=== PATIENT | female | born 1930 | race Caucasian/White ===

== ENCOUNTER 2017-11-06 15:57 | Emergency (ER) | payer MEDICARE, MEDICAID ==
--- NOTE | 2017-11-07 03:45 | SS ---
PRIMARY CARE PHYSICIAN: Adelaida Veras M.D. REASON FOR VISIT: Blood in stool. HISTORY OF PRESENT ILLNESS: This is an 86-year-old white female with a known history of COPD, hyperl ipidemia and hypertension, who reports over the last 2-3 years she has had intermittent blood in her bowel movements, which usually happens in the morning with morning bowel movement. It is painless. She notices it in the toilet. She reports that the last anywhere between 2 and 4 days, she is uncert ain, she has been having some blood in her bowel movements in the mornings and notices in the toilet after she gets up. Then this morning she had 2 bloody bowel movements in the toilet that had between a tablespoon and a cup size of blood in each one. They were some bright red, some clot to them, aga in painless. No mucus. She had had some diarrhea, though for the last 6 to 7 days, though only 2-3 times per day. She denied any other symptoms. Came into [facility], there she had a no rmal hemoglobin and hematocrit and negative orthostatics. She was transferred over here due to anne rn for possible diverticular bleed. Of note, she did have a colonoscopy 2 years ago, she is not exac tly certain, there was also a thought that she had not had another one in 5 years. The patient has s een Dr. Veras about the blood in her bowel movements as an outpatient and is now already set up for a colonoscopy as an outpatient later this month on the or . The patient has also noticed t evi a little bit of left lower quadrant abdominal pain, kind of a crampy in nature. PAST MEDICAL HISTORY: 1. Hypertension. 2. Hyperlipidemia. 3. Chronic obstructive pulmonary disease. PAST SURGICAL HISTORY: 1. Cholecystectomy. 2. Hysterectomy. 3. Bilateral knee surgeries. 4. Bilateral rotator cuff repair. SOCIAL HISTORY: The patient is a former smoker, quit more than 10 years ago. No alcohol or illicit drug use. FAMILY HISTORY: Negative per patient. ALLERGIES: REGLAN. CURRENT MEDICATIONS: 1. Atenolol 12.5 mg 3 times a day. 2. Lovastatin 20 mg daily. 3. Lisinopril/hydrochlorothiazide 20/12.5 mg daily. 4. Gabapentin 300 mg 4 times a day. 5. Aspirin 81 mg daily. 6. ProAir HFA as needed. 7. Fluticasone 2 sprays in each nostril daily. 8. Azelastine nasal spray as needed. 9. Tramadol 50 mg every 6 hours as needed for pain. 10. Vitamin C 500 mg daily. 11. Vitamin D3 of 1000 units daily. 12. Multivitamin daily. REVIEW OF SYSTEMS: Constitutional: No fevers, no chills. Eyes: No double vision or blurred vision . ENT: She has chronic nasal congestion and drainage. No sore throat. Pulmonary: No coughing, wh eezing or shortness of breath. Cardiovascular: No chest pain, no palpitations or racing heart. Gas trointestinal: See HPI. No nausea or vomiting. Genitourinary: No dysuria or hematuria. Musculosk eletal: No muscle aches or joint pains. Skin: No rashes or lesions she is noted. Neurologic: No numbness, tingling or focal weakness. She ambulates today without any dizziness. PHYSICAL EXAMINATION: VITAL SIGNS: Blood pressure 171/79, pulse 68, respirations 20, temperature 98.6, O2 sat 97% on room air. GENERAL: This is a well-developed, obese white female in no apparent distress. Mood and affect appr opriate. EYES: Pupils equal, round, and react to light. Extraocular movements intact. Oropharynx clear with out lesions, erythema or exudate. NECK: Supple. No lymphadenopathy, no thyroid nodules or enlargement. No JVD. HEART: Regular rate and rhythm. No murmurs, rubs or gallops. LUNGS: Clear to auscultation bilaterally. No wheezes, crackles or rhonchi. ABDOMEN: Soft, mild tenderness to palpation in the left lower quadrant without guarding. Minimal fu llness in that area. No rebound tenderness. No hepatosplenomegaly or other masses. EXTREMITIES: No clubbing, cyanosis or edema. SKIN: No rashes or lesions noted. NEUROLOGIC: The patient has intact strength in all extremities. Deep tendon reflexes are 2+ in all extremities and she has no facial droop. PSYCHIATRIC: Patient is alert and oriented x3 currently. She does have intermittent memory problems for the last 2-3 years per her and her family and for an example, this morning she could not remembe r what year it was, but she knows now. LABORATORY DATA: CBC shows a platelet count of 80,000, otherwise, completely normal. Hemoglobin was 13.0. This was checked at noon today. She has not had any bleeding or bowel movement since early t his morning. Coagulation profile normal. Complete metabolic panel was within normal limits. Urinal ysis showed some leukocyte esterase and white blood cells and 3+ bacteria. A Hemoccult of the stool was positive in [facility]. ASSESSMENT: 1. Lower gastrointestinal bleed. This is not a massive or continual bleed. It is most likely due t o diverticulitis though there is a possibility that it was a noninfected diverticular bleed; however, she has only had 2 moderate size amount of blood this morning and none since then. She has normal r ed blood cell count. She has normal vital signs and has had negative orthostatics. At this time, I think that her bleeding has stopped and was not clinically significant and so she is stable for disch [facility] from that standpoint. 2. Lower abdominal pain with bloody bowel movements, likely a mild case of diverticulitis. We will put patient on ciprofloxacin and metronidazole for the next 7 days and will have her follow up with Ancelmo Veras as an outpatient. 3. Pyuria and bacteriuria. The patient does not currently have any pain with urination; however, e ciprofloxacin should cover any possible infectious organisms in the urine. 4. Hypertension. The patient will need to continue in her home antihypertensives. 5. Thrombocytopenia. This needs to be followed and have further workup as an outpatient. DISCHARGE MANAGEMENT: The patient has been observed in both [facility] and in our [facility] ency room without any further evidence of bleeding. She is hemodynamically stable. She is being dis charged home. Follow up with Dr. Veras next week. Activity as tolerated. Diet healthy heart, low sodium diet. MEDICATIONS: Continue home medications plus. 1. Ciprofloxacin 500 mg twice a day for 7 days. 2. Metronidazole 500 mg 3 times a day for 7 days. The patient is also to follow up with her previously scheduled colonoscopy later this month. She can return to the emergency room. She has repeated significant episodes of bleeding from her bottom.
== END 2017-11-06 19:50 | disposition home or self-care (01) ==
LOC: ERS 15:57
DX: K92.2 Gastrointestinal hemorrhage, unspecified (principal); D69.6 Thrombocytopenia, unspecified; J44.9 Chronic obstructive pulmonary disease, unspecified; E78.5 Hyperlipidemia, unspecified; I10 Essential (primary) hypertension; Z87.891 Personal history of nicotine dependence
CPT/HCPCS: 99285

== ENCOUNTER 2017-12-02 08:50 | Day surgery (SDC) | payer MEDICARE, MEDICAID ==
[2017-12-02] MEDS ORDERED: PROPOFOL 200 MG/20 ML VIAL ONE (12:19)
--- NOTE | 2017-12-03 00:16 | OP ---
DATE OF SURGERY: 12/02/2017 OPERATIVE PROCEDURE: Colonoscopy. PREOPERATIVE DIAGNOSIS: An 87-year-old female with hematochezia, undergoing colonoscopy. POSTOPERATIVE DIAGNOSES: 1. Sigmoid diverticular disease and occasional diverticula over the proximal colon and occasional di verticula over the cecum. 2. Large hemorrhoids. PROCEDURE IN DETAIL: The patient was placed on her left lateral position under given sedation by the Anesthesia Department. A rectal exam was done before scope was advanced into the rectum. The patie nt had a small hemorrhoid also what appears to be skin tag. No other lesion felt on rectal exam. A Pentax video colonoscope was introduced into the rectum and advanced all the way into the cecum. The prep was good. The mucosa appeared normal. The patient had scattered sigmoid diverticular disease and also a few diverticula over the descending colon area. She also has occasional diverticula over cecal area and transverse colon area. The mucosa appears normal throughout the colon with normal vas cular pattern. Withdrawal of scope from the cecum, ascending colon, hepatic flexure, no other pathol ogy seen. Transverse colon, splenic flexure, descending colon, sigmoid colon and no other lesions ex cept for scattered diverticular disease. Retroflexion of scope in the rectum has large hemorrhoids. DISCHARGE PLANNING: This is an 87-year-old female referred to me by Dr. Adelaida mason of hematochezia. The patient underwent colonoscopy and was found to have hemorrhoids and scat tered diverticular disease. DISCHARGE RECOMMENDATIONS: 1. The patient advised to call me if she develops abdominal pain, hematochezia. 2. High-fiber diet. 3. Metamucil once a day. 4. To come back to clinic in 2 weeks.
== END 2017-12-02 17:00 | disposition home or self-care (01) ==
LOC: SDC 08:50
PROVIDERS: ATTEND Internal Medicine Gastroenterology
PROC: 0DJD8ZZ Inspection of Lower Intestinal Tract, Via Natural or Artificial Opening Endoscopic (ICD-10-PCS; principal; 2017-12-02)
DX: K92.1 Melena (principal); K57.30 Diverticulosis of large intestine without perforation or abscess without bleeding; K64.9 Unspecified hemorrhoids; Z88.8 Allergy status to other drugs, medicaments and biological substances
CPT/HCPCS: J2704

== ENCOUNTER 2018-07-10 10:33 | Day surgery (SDC) | payer MEDICARE, MEDICAID ==
[2018-07-09 13:07] VITALS: BMI 36.0
[2018-07-10] MEDS ORDERED: Oxymetazoline HCl 0.05% ( 15 ML ) ONE ×2 (11:07→11:25)
[2018-07-10] MEDS ORDERED: Fentanyl 100 MCG/2 ML VIAL ONE ×2 (11:20)
[2018-07-10] MEDS ORDERED: Lidocaine 1% w/Epinephrine 1:100K 30 ML VIAL ONE (11:25)
[2018-07-10 11:32] LABS: Hemoglobin 12.4 g/dL (12.0-16.0)
[2018-07-10 11:48] LABS: Anion Gap 14 mmol/L (10-20); BUN (Urea Nitrogen) 25 mg/dL (9.8-20.1); Calc. Creatinine Clearance 49 mL/min (70-130); Calcium 9.7 mg/dL (7.8-10.44); Carbon Dioxide 23 mmol/L (23-31); Chloride 108 mmol/L (98-107); Estimated GFR-MDRD 59; Glucose 80 mg/dL (83-110); Potassium 4.1 mmol/L (3.5-5.1); Sodium 141 mmol/L (136-145)
[2018-07-10] MEDS ORDERED: PROPOFOL 200 MG/20 ML VIAL ONE (13:38)
[2018-07-10] MEDS ORDERED: Lidocaine 1% PF 5 ML VIAL ONE (13:38)
[2018-07-10] MEDS ORDERED: ePHEDrine/0.9% NaCl/PF SYRINGE 50 mg/10 ml ONE (13:38)
--- NOTE | 2018-07-11 13:59 | OP ---
DATE OF PROCEDURE: 07/10/2018 PREOPERATIVE DIAGNOSES: Chronic maxillary sinusitis, chronic ethmoid sinusitis, chronic frontal sinusitis, and hypertrophic inferior turbinates. POSTOPERATIVE DIAGNOSES: Chronic maxillary sinusitis, chronic ethmoid sinusitis, chronic frontal sinusitis, and hypertrophic inferior turbinates. PROCEDURES PERFORMED: Bilateral nasal endoscopy with maxillary antrostomy with removal of tissue, bilateral nasal endoscopy with total ethmoidectomy, bilateral nasal endoscopy with frontal sinusotomy, bilateral nasal endoscopy with submucosal resection of inferior turbinates. DESCRIPTION OF PROCEDURE: MAXILLARY ANTROSTOMY The uncinate was then identified and the extent of the uncinate was appreciated by out-fracturing the uncinate with the ball-tip probe. We then used the sickle blade to disarticulate the uncinate from the lateral nasal wall. This was then removed with straight biting and upbiting punches with the remaining shrouds of mucosa and bony septum removed with the micro-debrider. The natural os of the maxillary sinus was then identified and enlarged with the maxillary punches and back biting forceps. TOTAL ETHMOIDECTOMY The anterior face of the ethmoid bulla was entered and with the micro-debrider, dissection continued posteriorly to the ground lamella. The limits of dissection included the insertion of the middle turbinate, medial orbital wall, and base of skull. We similarly identified the frontal recess and removed shrouds of bone and debris in that region to obtain patency into the agger nasi region and frontal recess. We then entered the ground lamella and its anteroinferior aspect and proceeded posteriorly, opening the posterior ethmoid air-cell system. Again, the limits of dissection included the base of skull and medial orbital wall. BILATERAL NASAL ENDOSCOPY WITH FRONTAL SINUSOTOMY With the 0-degree endoscope, the patient underwent systematic nasal endoscopy. There were no suspicious internasal masses or lesions identified. We then focused our attention to the osteomeatal complex region under the middle turbinate. BILATERAL NASAL ENDOSCOPY WITH SUBMUCOSAL RESECTION OF INFERIOR TURBINATES After consent was obtained, the patient was identified, brought to the operating room, and placed on the operating room table in the supine position. Consent was obtained, notifying the patient of the possibility of additional infections, bleeding, brain injury, and eye/orbital injury. The patient was placed on the operating room table, and general endotracheal anesthesia and intravenous access was obtained. The patient was then positioned, prepped and draped for endoscopic sinus surgery. Nasal preparation included trimming nasal vestibular hairs and spraying in topical Afrin. We then placed Afrin topical solution on nasal pledgets and strategically located them intranasally. The perinasal mucosa was injected with 1% lidocaine with 1:100,000 epinephrine in the submucoperichondrial plane of the septum, lateral nasal wall, and anterior to the uncinate. The patient was then prepped and draped in a sterile fashion and positioned for endoscopic sinus surgery. With the 0-degree endoscope, the patient underwent systematic nasal endoscopy. There were no suspicious internasal masses or lesions identified. We then focused our attention to the osteomeatal complex region under the middle turbinate. The inferior turbinates were visualized with a 0 degree endoscope and outfractured with a [place]ona elevator. The inferior medial aspect was cauterized with the electrocautery. Hemostasis was obtained . After adequate airway was established, we turned our attention to the contralateral side and used a similar procedure. Again, a Verona elevator was used to outfracture inferior turbinates under endoscopic visualization. With a suction cautery, the free inferior medial aspect was cauterized under direct visualization along the length of the inferior turbinate. At this point, we then turned our attention to the contralateral side and proceeded with endoscopic sinus surgery. At the completion of the case, Rice keel splints were placed in the ethmoid cavities after the ethmoidectomy. There were no complications. The patient tolerated the procedure well and was discharged to the recovery room in stable condition prior to return to the preoperative day stay with ultimate discharge home. Prescriptions for pain medication and antibiotics were provided. The patient received intramuscular Depo-Medrol during the case. Job ID: [id number]
== END 2018-07-10 14:45 | disposition home or self-care (01) ==
LOC: SDC 10:33
PROVIDERS: ATTEND Specialist
PROC: 09TL8ZZ Resection of Nasal Turbinate, Via Natural or Artificial Opening Endoscopic (ICD-10-PCS; principal; 2018-07-10)
PROC: 09TV8ZZ Resection of Left Ethmoid Sinus, Via Natural or Artificial Opening Endoscopic (ICD-10-PCS; 2018-07-10)
PROC: 09TU8ZZ Resection of Right Ethmoid Sinus, Via Natural or Artificial Opening Endoscopic (ICD-10-PCS; 2018-07-10)
PROC: 099T8ZZ Drainage of Left Frontal Sinus, Via Natural or Artificial Opening Endoscopic (ICD-10-PCS; 2018-07-10)
PROC: 099Q8ZZ Drainage of Right Maxillary Sinus, Via Natural or Artificial Opening Endoscopic (ICD-10-PCS; 2018-07-10)
PROC: 099R8ZZ Drainage of Left Maxillary Sinus, Via Natural or Artificial Opening Endoscopic (ICD-10-PCS; 2018-07-10)
PROC: 099S8ZZ Drainage of Right Frontal Sinus, Via Natural or Artificial Opening Endoscopic (ICD-10-PCS; 2018-07-10)
DX: J32.8 Other chronic sinusitis (principal); E78.5 Hyperlipidemia, unspecified; G25.81 Restless legs syndrome; J44.9 Chronic obstructive pulmonary disease, unspecified; K21.9 Gastro-esophageal reflux disease without esophagitis; I10 Essential (primary) hypertension; G47.30 Sleep apnea, unspecified; I08.1 Rheumatic disorders of both mitral and tricuspid valves; G62.9 Polyneuropathy, unspecified; I27.20 Pulmonary hypertension, unspecified; Z79.82 Long term (current) use of aspirin; Z79.899 Other long term (current) drug therapy; Z88.8 Allergy status to other drugs, medicaments and biological substances
CPT/HCPCS: 36415; 80048; 85014; 85018; 93005; 93010; J2001; J2704; J3010

== ENCOUNTER 2018-08-18 15:45 | Emergency (ER) | payer MEDICARE, MEDICAID ==
[2018-08-18 16:34] LABS: #Lymphocytes 1.3 thou/uL (1.20-3.40); #Monocytes 0.4 thou/uL (0.11-0.59); #Neutrophils 5.1 thou/uL (1.40-6.50); %Basophils 0.4 % (0.0-1.0); %Eosinophils 0.1 % (0.0-10.0); %Lymphocytes 19.3 % (21.0-51.0); %Neutrophils 74.2 % (42.0-75.0); Hemoglobin 11.5 g/dL (12.0-16.0); Mean Corpuscular Hemoglobin 28.4 pg (27.0-31.0); Mean Corpuscular Volume 88.8 fL (78.0-98.0); Mean Platelet Volume 7.4 fL (7.4-10.4); Platelet Count 313 thou/uL (130-400); RBC Distribution Width 13.5 % (11.5-14.5); Red Blood Cell (RBC) Count 4.05 mill/uL (4.20-5.40); White Blood Cell (WBC) Count 6.8 thou/uL (4.8-10.8)
[2018-08-18 16:54] LABS: ALT (SGPT) 14 U/L (8-55); AST (SGOT) 26 U/L (5-34); Albumin 4.1 g/dL (3.4-4.8); Alkaline Phosphatase 74 U/L (40-150); Anion Gap 15 mmol/L (10-20); BUN (Urea Nitrogen) 25 mg/dL (9.8-20.1); Bilirubin, Total 0.7 mg/dL (0.2-1.2); CK (CPK) 360 U/L (29-168); Calc. Creatinine Clearance 0 mL/min (70-130); Calcium 9.9 mg/dL (7.8-10.44); Carbon Dioxide 22 mmol/L (23-31); Chloride 106 mmol/L (98-107); Estimated GFR-MDRD 43; Globulin 2.4 g/dL (2.4-3.5); Glucose 130 mg/dL (83-110); Potassium 3.7 mmol/L (3.5-5.1); Protein, Total 6.5 g/dL (6.0-8.3); Sodium 139 mmol/L (136-145)
--- NOTE | 2018-08-18 17:03 | RAD ---
PORTABLE CHEST 1 VIEW: DATE: 08/18/2018. TIME: 3:56 p.m. HISTORY: Dyspnea, weakness. FINDINGS: Comparison is made with the exam of 08/30/2016. The heart size is normal. The aorta is tortuous. The lungs are expanded without focal areas of cons olidation, pneumothoraces, apollo pulmonary edema, or large effusions. POS: [facility]
[2018-08-18 17:42] LABS: Bilirubin Negative (Negative); Blood, Urine Negative (Negative); Clarity CLEAR (Clear); Glucose, Urine (Dipstick) Negative (Negative); Leukocyte Moderate (Negative); Nitrite Negative (Negative); Protein, Urine (Dipstick) Negative (Neg-Trace); Specific Gravity, Urine 1.017 (1.002-1.036); pH, Urine 6.5 (5.0-9.0)
[2018-08-18 17:44] LABS: Bacteria/HPF None Seen HPF (None Seen); Hyaline Casts/LPF 0-3 HYALINE CAST LPF (0-3 Hyaline); Pathc Cast-AUWi Flag 0.29 (0-2.49); Squamous Epithelial 0-3 HPF (0-3); WBC/HPF 21-50 HPF (0-3)
[2018-08-18] MEDS ORDERED: Amoxicillin/Potassium Clav 875 MG TAB ONE (18:04)
== END 2018-08-18 20:04 | disposition home or self-care (01) ==
LOC: ERS 15:45
DX: N39.0 Urinary tract infection, site not specified (principal); Z98.890 Other specified postprocedural states; E78.5 Hyperlipidemia, unspecified; J44.9 Chronic obstructive pulmonary disease, unspecified; I10 Essential (primary) hypertension; F03.90 Unspecified dementia, unspecified severity, without behavioral disturbance, psychotic disturbance, mood disturbance, and anxiety; Z87.891 Personal history of nicotine dependence; Z79.82 Long term (current) use of aspirin; Z79.899 Other long term (current) drug therapy
CPT/HCPCS: 36415; 71045; 80053; 81003; 81015; 82550; 84484; 85025; 93005; 99213; G0463

== ENCOUNTER 2019-02-10 19:30 | Outpatient (CLI) | payer MEDICARE, MEDICAID | END 2019-02-10 19:31 | disposition home or self-care (01) | LOC: SLEEPLAB 19:30 | PROVIDERS: ATTEND Family Medicine | DX: G47.33 Obstructive sleep apnea (adult) (pediatric) (principal); G25.81 Restless legs syndrome; R06.89 Other abnormalities of breathing; R09.89 Other specified symptoms and signs involving the circulatory and respiratory systems; R40.0 Somnolence; R53.83 Other fatigue; R35.1 Nocturia; R06.83 Snoring; E66.9 Obesity, unspecified; I10 Essential (primary) hypertension; Z68.26 Body mass index [BMI] 26.0-26.9, adult | CPT/HCPCS: 95811 ==

== ENCOUNTER 2019-06-03 17:19 | Observation (INO) | payer MEDICARE, OTHER ==
[2019-06-03 20:22] VITALS: BMI 36.5
[2019-06-03] MEDS ORDERED: Calcium Carbonate 500 MG ChewTAB PO PRN (21:01)
[2019-06-03] MEDS ORDERED: Acetaminophen 325 MG TAB PO PRN (21:01)
[2019-06-03] MEDS ORDERED: Enoxaparin Sodium 40 MG/0.4 ML SYRINGE SC SCH (21:15)
--- NOTE | 2019-06-03 21:53 | PDOC.FPRHP ---
- History of Present Illness Chief Complaint: SOB/cellulitis History of Present Illness: 88yo CF with h/o CHF, HLD, HTN, Dementia, and COPD presenting for worsening SOB and cellulitis of RLE. Pt states that approximately 1 month ago she had a mechanical fall while getting of the bed when she hit her left gipson. Went to her PCP and at that time wound was clean, non-draining and non-erythematous and thus was told to monitor and given return precautions. Since that time wound has started to drain purulent discharge, erythema to mid-gipson, mildly TTP and warm to the touch. Has not returned to PCP for eval. Presented to ED in [place]. Denies any fever/chills. Pt also endorses worsening dyspnea, has history of COPD and CHF. States dyspnea gradually worsened over past month, can talk to end of driveway and back with walker and mild dyspnea. ALso endorses increased sputum production and thickenness, white phelgm over past 1 week. Endorses chest congestion and nonproductive cough. No CP, fevers/chills, n/v, diarrhea/constipation, dysuria, frequency, or incontinence. She has never been on ventilator for COPD exacerbation. ED Course: Given duoneb in ED, ASA, and clinda. - Allergies/Adverse Reactions Allergies Allergy/AdvReac Type Severity Reaction Status Date / Time methylphenidate Allergy works in Verified 06/03/19 20:48 [From Ritalin] reverse for me - Home Medications Medication Instructions Recorded Confirmed Type Albuterol Sulfate [Proair HFA] 2 puff INH Q6HR PRN 12/02/17 06/03/19 History Atenolol [Tenormin] 1 tab PO QAM 12/02/17 06/03/19 History Gabapentin 600 mg PO TID 12/02/17 06/03/19 History Lovastatin [Mevacor] 1 tab PO HS 12/02/17 06/03/19 History Pramipexole Di-HCl [Pramipexole 0.5 mg PO QPM 12/02/17 06/03/19 History Dihydrochloride] Ascorbic Acid [Vitamin C] 500 mg PO DAILY 06/03/19 06/03/19 History Aspirin [Aspir-Low] 81 mg PO DAILY 06/03/19 06/03/19 History Cholecalciferol (Vitamin D3) 1,000 unit PO DAILY 06/03/19 06/03/19 History [Vitamin D3] Furosemide 20 mg PO DAILY 06/03/19 06/03/19 History Lisinopril 20 mg PO DAILY 06/03/19 06/03/19 History Multivit-Minerals/Folic/Ginkgo 1 tablet PO DAILY 06/03/19 06/03/19 History [One Daily For Women 50+ Adv] predniSONE 20 mg PO DAILY 06/03/19 06/03/19 History - History PMHx: CHF (no records of previous EF), HLD, HTN, Dementia, COPD, CKDIIIa, FELA PSHx: Zina, Hyst, BL knee replacements FHx: Unsure of family history Social: Lives in [place] with daughter Dayana and her . Denies any tob, etoh, or illicits. Remote history of smoking in her 20s but quit by age 31. - Review of Systems General: denies: fever/chills, weight/appetite/sleep changes, night sweats, fatigue Eyes: denies: vision changes ENT: denies: nasal congestion, rhinorrhea Respiratory: reports: cough, congestion, shortness of breath, exercise intolerance Cardiovascular: denies: chest pain, palpitation, edema, paroxysmal nocturnal dyspnea, orthopnea Gastrointestinal: denies: nausea, vomiting, diarrhea, constipation, abdominal pain Genitourinary: denies: incontinence, dysuria, polyuria, discharge Skin: reports: rashes (RLE cellulitis) Musculoskeletal: reports: stiffness (chronic of knees) Neurological: denies: numbness, syncope, seizure Psychological: denies: anxiety, depression - Vital signs BP: 128/59 HR: 78 RR: 18 Tmax: 97.9 Pox: 97% on RA Wt: 86kg - Physical Exam Constitutional: NAD, awake, alert and oriented, well developed (A/O x3 aware of situation and medical history, Resting comfortably. Very Pleasant.) HEENT: EOMI, conjunctiva clear, grossly normal vision, grossly normal hearing, normal nasal mucosa, MMM, oropharynx clear Neck: supple, trachea midline, no JVD Heart: RRR, normal S1/S2, no murmurs/rubs/gallops, pulses present, no edema ( mild edema of RLE cellultis, no edmea of RLE) Lungs: CTAB, no respiratory distress (no increased work of breathing), good air movement, no rales/rhonchi, no wheezing Abdomen: soft, non-tender, bowel sounds present Musculoskeletal: normal structure, normal tone Neurological: no focal deficit Skin: other (RLE cellulitis with erythema, warmth, and TTP to mid-gipson. 2cm wound with small purulent drainage and surround eschar.) Heme/Lymphatic: no unusual bruising or bleeding Psychiatric: normal mood and affect, good judgment and insight, intact recent and remote memory FMR H&P: Results - Labs Result Diagrams: 06/04/19 05:19 06/04/19 05:19 - EKG Interpretation EKG: NSR, normal R wave progression, normal axis, no acute T wave or ST changes. - Radiology Interpretation Chest x-ray Status: image reviewed by me (Small R midlung pneumonitis - rec 3-4 week repeat CXR Calcified trachea, cardiomegaly, mild blunting of costodiaphgramatic recesses, small consolidation in RUL), report reviewed by me FMR H&P: A/P - Problem List (1) COPD exacerbation Current Visit: Yes Status: Acute Code(s): J44.1 - CHRONIC OBSTRUCTIVE PULMONARY DISEASE W (ACUTE) EXACERBATION (2) Cellulitis of leg without foot, right Current Visit: Yes Status: Acute Code(s): L03.115 - CELLULITIS OF RIGHT LOWER LIMB (3) CHF (congestive heart failure) Current Visit: Yes Status: Chronic Code(s): I50.9 - HEART FAILURE, UNSPECIFIED (4) HLD (hyperlipidemia) Current Visit: Yes Status: Chronic Code(s): E78.5 - HYPERLIPIDEMIA, UNSPECIFIED (5) HTN (hypertension) Current Visit: Yes Status: Chronic Code(s): I10 - ESSENTIAL (PRIMARY) HYPERTENSION (6) FELA (obstructive sleep apnea) Current Visit: Yes Status: Chronic Code(s): G47.33 - OBSTRUCTIVE SLEEP APNEA (ADULT) (PEDIATRIC) - Plan 88yo CF with h/o CHF, HLD, HTN, Dementia, and COPD presenting for worsening SOB and cellulitis of RLE. #COPD exacerbation - Increased dyspnea, increased sputum production and change in consistence - CXR mild blunting of recesses, possible RUL consolidation - Satting upper 90s on RA, VSS, WBC 9.1 - Duonebs q6h prn - 40mg methylpred x5 days - Procal ordered - Mild COPD exacerbation, will start Doxy IV 100mg BID, will cont to assess and consider escalation of abx if warranted. - Monitor respiratory status #Cellulitis of RLE - No outpatient treatment, dose of clinda in ER - Marked borders of wound - Wound care consulted - Will start doxy to cover COPD exacerbation plus skin/soft tissue infection. Monitor closely and consider escalation of abx if no improvement in first 24 hours. - no systemic sxs with VSS #Elevated Troponins - No sxs, EKG WNL, monitor on tele - Trop 0.053 -> 0.023 - likely 2/2 to ALETHEA and COPD exacerbation - will cont to trend #Asymptomatic bacteriuria - no sxs. UA + Bacteria and large LE with no nitrites - will await Cx, monitor #CHF - No fluid overload on exam, lungs clear, no LE edema - No echo in records, will order for AM - BNP 138.3 which appears at baseline - will monitor fluid status - cont ASA 81mg and home lasix #HLD - on lovastatin, elevated cholesterol in past, last checked >1 year ago, will obtain FLP #HTN - BP stable, cont home meds, monitor #ALETHEA on CKDIIIa - BUN elevated at 26, Cr 1.21 - Baseline GF 58 with Cr 0.9 - Will give 1L LR @ 100cc/hr, reasses with AM labs #FELA - CPAP HS #Dementia - A/Ox3, understandings medical conditions and situation, able to make medical decision. Code: Full Diet: HH VTE: Lovenox IVF: LR @100cc/hr x1L PCP: Rito Disposition/LOS: Admit to Tele obs for COPD exacerbation, ALETHEA, and RLE cellulitis. Cont Abx, echo in AM, monitor respiratory status. Anticipate hospitalization <48 hours. FMR H&P: Upper Level - Pertinent history I was present with the logistics intern during the HPI. I agree with the above document. I made edits as needed. - Pertinent findings Pt resting comfortably in bed eating a cool cup of chocolate ice cream. In no acute distress. Has wound with eschar and some old drainage on anterior aspect of lower right ext. Redness and swelling noted. Hot to touch. Resp: No wheezes or crackles. No rales noted. No diminished breath sounds. Cardio: RRR, no murmurs or gallops. - Plan Date/Time: 06/03/19 2150 I, Joseph Leslie, PGY-3, have evaluated this patient and agree with findings/ plan as outlined by logistics intern resident. Pertinent changes/additions are listed here. I have reviewed the above plan. I made edits as needed. See above for detailed plan. Pt has had month hx of SOB with recent new sputum production. Will tx for COPD exacerbation. Pt also has wound on RLE. Wound care consulted. Pt had not started outpt abx. Will tx for both infections with Doxycyline for double coverage. Pt o2 sats stable on RA. Will continue to monitor. Addendum - Attending - Attending Attestation Date/Time: 06/04/19 4145 I personally evaluated the patient and discussed the management with Dr. Mcmillan last night. I agree with the History, Examination, Assessment and Plan documented above with any addition or exceptions noted below.
[2019-06-03] MEDS ORDERED: Lactated Ringer's 1,000 ML IV SCH (22:15)
[2019-06-03] MEDS ORDERED: Bacteriostatic Water 30 ML VIAL FS PRN (22:42)
[2019-06-03] MEDS ORDERED: methylPREDNISolone Sod Succ 40 MG VIAL IVP SCH (22:45)
[2019-06-04 00:24] LABS: Troponin I 0.027 ng/mL (< 0.028)
[2019-06-04 05:47] LABS: #Lymphocytes 0.6 thou/uL (1.20-3.40); #Monocytes 0.1 thou/uL (0.11-0.59); %Basophils 0.1 % (0.0-1.0); %Eosinophils 0.2 % (0.0-10.0); %Monocytes 1.1 % (0.0-10.0); %Neutrophils 91.6 % (42.0-75.0); Hemoglobin 12.4 g/dL (12.0-16.0); Mean Corpuscular HGB CONC 33.3 g/dL (32.0-36.0); Mean Corpuscular Hemoglobin 31.2 pg (27.0-31.0); Mean Corpuscular Volume 93.5 fL (78.0-98.0); Mean Platelet Volume 7.3 fL (7.4-10.4); Platelet Count 223 thou/uL (130-400); RBC Distribution Width 12.7 % (11.5-14.5); Red Blood Cell (RBC) Count 3.99 mill/uL (4.20-5.40); White Blood Cell (WBC) Count 8.8 thou/uL (4.8-10.8)
[2019-06-04 06:06] LABS: Anion Gap 17 mmol/L (10-20); BUN (Urea Nitrogen) 24 mg/dL (9.8-20.1); Calc. Creatinine Clearance 38 mL/min (70-130); Calcium 9.4 mg/dL (7.8-10.44); Carbon Dioxide 26 mmol/L (23-31); Cardiac Risk 4.7 (Less than 4.5); Chloride 101 mmol/L (98-107); Cholesterol 266 mg/dl (< 200 Desired); Estimated GFR-MDRD 44; Glucose 164 mg/dL (83-110); HDL Cholesterol 57 mg/dL (>60 Neg Risk); LDL Cholesterol, Calculated 184 mg/dL; Sodium 140 mmol/L (136-145); Triglycerides 125 mg/dL (Less than 150)
--- NOTE | 2019-06-04 06:19 | PDOC.FM ---
- Subjective Subjective: Pt did well overnight. She does not feel like her breathing is any worse. She reports she is stiff and her leg hurts some. - Objective MAR Reviewed: Yes Vital Signs & Weight: Vital Signs (12 hours) Temp Pulse Resp BP Pulse Ox 06/04/19 03:25 97.9 F 94 22 H 121/60 92 L 06/04/19 03:02 78 18 88 L 06/03/19 19:25 98.1 F 73 20 121/63 95 Weight Weight 71.214 kg Result Diagrams: 06/04/19 05:19 06/04/19 05:19 Phys Exam - Physical Examination Constitutional: NAD HEENT: moist MMs Neck: no JVD Respiratory: wheezing present Good air movement Cardiovascular: RRR, no significant murmur Gastrointestinal: soft, non-tender, no distention, positive bowel sounds Musculoskeletal: pulses present, edema present Neurological: moves all 4 limbs Psychiatric: A&O x 3 Skin: cap refill <2 seconds Deviation from normal: erythema is within previous borders, wound has purulent discharge Dx/Plan (1) Cellulitis of right leg Code(s): L03.115 - CELLULITIS OF RIGHT LOWER LIMB Status: Acute (2) COPD exacerbation Code(s): J44.1 - CHRONIC OBSTRUCTIVE PULMONARY DISEASE W (ACUTE) EXACERBATION Status: Acute (3) CHF (congestive heart failure) Code(s): I50.9 - HEART FAILURE, UNSPECIFIED Status: Chronic (4) HLD (hyperlipidemia) Code(s): E78.5 - HYPERLIPIDEMIA, UNSPECIFIED Status: Chronic (5) HTN (hypertension) Code(s): I10 - ESSENTIAL (PRIMARY) HYPERTENSION Status: Chronic (6) FELA (obstructive sleep apnea) Code(s): G47.33 - OBSTRUCTIVE SLEEP APNEA (ADULT) (PEDIATRIC) Status: Chronic - Plan Plan: This is an 88 yo female with a pmh of CHF, HLD, HTn dementia, COPD COPD exacerbation -Duonebs, steroids, abx -Procal negative, do not need to escalate abx -Provide respiratory support and monitor Celullitis -No outpt treatment, sp clindamycin in ER -Wound marked, wound care consulted -Starting doxycycline -Pending ESR to rule out osteomyelitis -Wound cultured, pending results -Pt's course with be depended on the facts for or against osteomyelitis and wound care recommendations. We will have more answers today Elevated troponins -Trending down -Will move to medical -Likely 2/2 ALETHEA Asumptomatic bacteriuia -No symptoms, will not treat at this time CHF -BNP at baseline -Continue aspirin and home lasix ALETHEA on CKD3 -S/P 1L LR, improving labs, dosing lovenox for crcl (33) FELA Dementia
[2019-06-04 08:11] VITALS: TEMP 97.6
[2019-06-04] MEDS ORDERED: Ascorbic Acid 500 mg Chewable Tablet PO SCH (09:00)
[2019-06-04] MEDS ORDERED: Multivitamin W/ Minerals 1 TAB PO SCH (09:00)
[2019-06-04] MEDS ORDERED: methylPREDNISolone Sod Succ 40 MG VIAL IVP SCH (09:00)
[2019-06-04] MEDS ORDERED: Aspirin 81 mg Enteric Coated Tablet PO SCH (09:00)
[2019-06-04] MEDS ORDERED: Furosemide 20 MG TAB PO SCH (09:00)
[2019-06-04] MEDS ORDERED: Atenolol 25 MG TAB PO SCH (09:00)
[2019-06-04] MEDS ORDERED: Enoxaparin Sodium 40 MG/0.4 ML SYRINGE SC SCH ×2 (09:00)
[2019-06-04] MEDS ORDERED: Lisinopril 20 MG TAB PO SCH (09:00)
[2019-06-04] MEDS ORDERED: Enoxaparin Sodium 30 MG/0.3 ML SYRINGE SC SCH (09:00)
[2019-06-04] MEDS ORDERED: Gabapentin 300 MG CAP PO SCH (09:00)
[2019-06-04 11:31] VITALS: BP 127/60
--- NOTE | 2019-06-04 11:39 | PRG ---
DATE OF SERVICE: 06/04/2019 Ms. Hager is an 88-year-old lady with a history of heart failure and COPD, who presented with an increased shortness of breath. She also has a cellulitis of her right lower extremity. With appropriate DuoNeb treatment, she is feeling better when not as short of breath. We have her on oral antibiotics for her mild cellulitis of the right lower extremity. Job ID: [id number]
[2019-06-04] MEDS ORDERED: Simvastatin 5 MG TAB PO SCH (21:00)
[2019-06-04] MEDS ORDERED: Pramipexole Di-HCl 0.25 MG TAB PO SCH (21:00)
--- NOTE | 2019-06-04 23:43 | DIS ---
DATE OF ADMISSION: 06/03/2019 DATE OF DISCHARGE: 06/04/2019 ADMITTING ATTENDING: David Barroso MD DISCHARGE ATTENDING: Brayden Pace MD RESIDENT: Antonio Pena DO CONSULTS: None. PROCEDURES PERFORMED: 1. Echocardiogram showing ejection fraction of 60% to 65%. Mitral annular calcification. Moderate mitral regurg, [id number] tricuspid regurgitation. 2. Cellulitis secondary to ulcer on leg, secondary to mechanical fall month ago with no outpatient treatment. 3. Chronic obstructive pulmonary disease exacerbation. SECONDARY DIAGNOSES: History of congestive heart failure ruled out, hyperlipidemia, hypertension, dementia, chronic obstructive pulmonary disease, chronic kidney disease 3A, obstructive sleep apnea. DISCHARGE MEDICATIONS: 1. Albuterol sulfate inhaler 2 puffs q.6 hours p.r.n. dyspnea. 2. Ascorbic acid 500 mg p.o. daily. 3. Aspirin 81 mg p.o. daily. 4. Atenolol 25 mg p.o. daily. 5. Vitamin D3 of 1000 units p.o. daily. 6. Doxycycline 100 mg p.o. b.i.d. for 10 days. 7. Furosemide 20 mg p.o. daily. 8. Gabapentin 600 mg p.o. t.i.d. 9. Lisinopril 20 mg p.o. daily. 10. Lovastatin 20 mg p.o. at bedtime. 11. Multivitamin p.o. daily. 12. Pramipexole 0.5 mg p.o. q.p.m. 13. Prednisone 40 mg q.a.m. for 4 days. 14. Spiriva Respimat 4 g inhalation daily with education from pharmacy students. DISCONTINUED MEDICATIONS: None. BRIEF HISTORY OF PRESENT ILLNESS/HOSPITAL COURSE: This is an 88-year-old female with past medical history as above, who presented with worsening shortness of breath, cellulitis of the right lower extremity. She states about a month ago, she fell at home and hit her right gipson. She initially was seen by her PCP. No erythema at that time. The patient presents to the ER with worsening erythema and exudate of this leg. The patient was admitted to the hospital, started on IV doxycycline, as well as steroids. Steroids were for the purpose of her shortness of breath and found to have wheezing on exam. There was concern for CHF and echocardiogram was obtained as noted above, which turned out to rule out CHF at this time. The patient was continued on doxycycline and steroids. Upon exam at the day of discharge, the patient's erythema was receding from behind the borders. The wound was examined and wound cultures were taken. Due to the location, concern for osteomyelitis was entertained. ESR was obtained at 21, ruling out concern for osteomyelitis. Vital signs stable at the time of discharge. White count negative. DISPOSITION: Stable. DISCHARGE INSTRUCTIONS: 1. Location: Home. 2. Diet: Heart healthy. 3. Activity: As tolerated. 4. Followup: Follow up with Dr. Veras in 7 days, PCP. The patient given return precautions for fever and worsening erythema. Job ID: [id number]
== END 2019-06-04 15:36 | disposition home or self-care (01) ==
LOC: ERS 17:19 → 2SW 18:08
PROVIDERS: ADMIT Family Medicine; ATTEND Family Medicine
DX: J44.1 Chronic obstructive pulmonary disease with (acute) exacerbation (principal); L97.919 Non-pressure chronic ulcer of unspecified part of right lower leg with unspecified severity; L03.115 Cellulitis of right lower limb; E78.5 Hyperlipidemia, unspecified; F03.90 Unspecified dementia, unspecified severity, without behavioral disturbance, psychotic disturbance, mood disturbance, and anxiety; J44.9 Chronic obstructive pulmonary disease, unspecified; G47.33 Obstructive sleep apnea (adult) (pediatric); I13.0 Hypertensive heart and chronic kidney disease with heart failure and stage 1 through stage 4 chronic kidney disease, or unspecified chronic kidney disease; N18.3 Chronic kidney disease, stage 3 (moderate); I50.9 Heart failure, unspecified; Z87.891 Personal history of nicotine dependence; Z79.52 Long term (current) use of systemic steroids; Z79.82 Long term (current) use of aspirin; Z79.899 Other long term (current) drug therapy
CPT/HCPCS: 80048; 80061; 84145; 84484; 85025; 85652; 87070; 87076; 87077; 87086; 87205; 93005; 93306; 94640; 96361; 96365; 96366 ×2; 96372 ×2; 96375; 96376; 97139; 99285; G0378 ×3; 36415; J1650; J2920; J3490; J7620

== ENCOUNTER 2019-07-11 17:38 | Inpatient (IN) | payer MEDICARE, OTHER ==
[2019-07-11] MEDS ORDERED: Cefepime 2 GM VIAL ONE (18:04)
[2019-07-11] MEDS ORDERED: Magnesium 2 GM/50 ML BAG (IN WATER) ONE (18:04)
[2019-07-11 19:04] LABS: Bilirubin Negative (Negative); Blood, Urine Negative (Negative); Clarity Clear (Clear); Glucose, Urine (Dipstick) Normal (Negative); Leukocyte Negative Leu/uL (Negative); Nitrite Negative (Negative); Protein, Urine (Dipstick) Negative (Neg-Trace); Urobilinogen Normal mg/dL (Less than 2)
--- NOTE | 2019-07-11 19:10 | PDOC.FPRHP ---
- History of Present Illness Chief Complaint: SOB History of Present Illness: 88yo F presents as transfer from [place] ED. Per patients daughter and medical power of assistant district attorney patient was recently diagnosed with pneumonia while in the long term within the last two weeks. She was discharged from the long term one week ago and moved in with her daughter. Patient had done well over the next few days and daughter left home for an out of state . Patient states that for the last few days she had an increase in shortness of breath and a cough. Today early this morning patient started to have an acute increase in her level of shortness of breath. She called a family friend who brought her to the emergency department. Patient was found to be in acute respiratory distress and hypoxic and placed on BiPAP. Chest x-ray did not show pneumonia so patient was treated for COPD exacerbation and subsequently transferred here. Patient notes in increasing her chronic cough with increased sputum production recently. She does not recall if she has had any fevers or chills recently. Patient has a history of chronic dementia limiting history. ED Course: Arrived on 4L NC w/ sats in 90's. Pt complained of SOB and placed on BiPAP, sats remained stable. Received azithro and cefepime. Steroid burst and Mg. Taken off Bipap prior to admission w/ sats stable on 3-4L. - Allergies/Adverse Reactions Allergies Allergy/AdvReac Type Severity Reaction Status Date / Time methylphenidate Allergy works in Verified 07/12/19 07:36 [From Ritalin] reverse for me - Home Medications Medication Instructions Recorded Confirmed Type Albuterol Sulfate [Proair HFA] 2 puff INH Q6HR PRN 12/02/17 07/11/19 History Atenolol [Tenormin] 1 tab PO QAM 12/02/17 07/11/19 History Gabapentin 600 mg PO TID 12/02/17 07/11/19 History Lovastatin [Mevacor] 1 tab PO HS 12/02/17 07/11/19 History Pramipexole Di-HCl [Pramipexole 0.5 mg PO QPM 12/02/17 07/11/19 History Dihydrochloride] Ascorbic Acid [Vitamin C] 500 mg PO DAILY 06/03/19 07/11/19 History Aspirin [Aspir-Low] 81 mg PO DAILY 06/03/19 07/11/19 History Cholecalciferol (Vitamin D3) 1,000 unit PO DAILY 06/03/19 07/11/19 History [Vitamin D3] Furosemide 20 mg PO DAILY 06/03/19 07/11/19 History Lisinopril 20 mg PO DAILY 06/03/19 07/11/19 History Multivit-Minerals/Folic/Ginkgo 1 tablet PO DAILY 06/03/19 07/11/19 History [One Daily For Women 50+ Adv] Tiotropium [place] [Spiriva 4 gm IH DAILY #1 mist.inhal 06/04/19 07/11/19 Rx Respimat] - History PMHx: CHF (no records of previous EF), HLD, HTN, Dementia, COPD, CKDIIIa, FELA PSHx: Zina, Hyst, BL knee replacements FHx: Unsure of family history Social: Lives in [place] with daughter Dayana and her . Denies any tob, etoh, or illicits. Remote history of smoking in her 20s but quit by age 31. - Review of Systems ROS unobtainable: other (Difficult 2/2 baseline dementia) General: reports: fatigue. denies: fever/chills ENT: denies: nasal congestion, rhinorrhea Respiratory: reports: cough, shortness of breath Cardiovascular: denies: chest pain, edema Gastrointestinal: denies: nausea, vomiting, diarrhea Skin: denies: rashes, lesions Musculoskeletal: denies: pain Neurological: denies: numbness, weakness Psychological: denies: other - Vital signs BP: 111/57, MAP: 75, Pulse: 74, Resp: 24, Temp: 98.5 (Oral), Pain: 5, O2 sat: 97 on (3L Oxygen), Time: 07/11/2019 17:52. - Physical Exam Constitutional: NAD, well developed HEENT: normocephalic and atraumatic, EOMI, conjunctiva clear Neck: supple, FROM, no JVD Heart: RRR, normal S1/S2, pulses present -Heart: Difficult to auscultate over breath sounds -Lungs: Mildly tachypneic w/ mild increased work of breathing, inspiratory rales throughout, expiratory wheezing and prolonged expiratory phase Abdomen: soft, non-tender, bowel sounds present Musculoskeletal: normal structure, normal tone, ROM grossly normal Neurological: no focal deficit Skin: no rash/lesions, good turgor, capillary refill <2 seconds Heme/Lymphatic: no unusual bruising or bleeding, no purpura Psychiatric: normal mood and affect, good judgment and insight -Psychiatric: Baseline dementia - recent and remote memory impaired. Oriented to person and place, needs prompting for time FMR H&P: Results - Labs Result Diagrams: 07/12/19 04:11 07/12/19 04:11 Lab results: Urine Ketones Negative mg/dL (Negative) 07/11/19 18:43 Urine Blood Negative (Negative) 07/11/19 18:43 Urine Nitrite Negative (Negative) 07/11/19 18:43 Ur Leukocyte Esterase Negative Isabelle/uL (Negative) 07/11/19 18:43 - Radiology Interpretation Chest x-ray Status: report reviewed by me (No confluent pna or edema. Overall stable exam) FMR H&P: A/P - Problem List (1) COPD exacerbation Current Visit: No Status: Acute Code(s): J44.1 - CHRONIC OBSTRUCTIVE PULMONARY DISEASE W (ACUTE) EXACERBATION (2) Dementia Current Visit: Yes Status: Chronic Code(s): F03.90 - UNSPECIFIED DEMENTIA WITHOUT BEHAVIORAL DISTURBANCE (3) Chronic kidney disease, stage 3 Current Visit: Yes Status: Chronic Code(s): N18.3 - CHRONIC KIDNEY DISEASE, STAGE 3 (MODERATE) (4) HLD (hyperlipidemia) Current Visit: No Status: Chronic Code(s): E78.5 - HYPERLIPIDEMIA, UNSPECIFIED (5) HTN (hypertension) Current Visit: No Status: Chronic Code(s): I10 - ESSENTIAL (PRIMARY) HYPERTENSION (6) FELA (obstructive sleep apnea) Current Visit: No Status: Chronic Code(s): G47.33 - OBSTRUCTIVE SLEEP APNEA (ADULT) (PEDIATRIC) (7) History of congestive heart failure Current Visit: Yes Status: Acute Code(s): Z86.79 - PERSONAL HISTORY OF OTHER DISEASES OF THE CIRCULATORY SYSTEM - Plan Acute hypoxic respiratory failure 2/2 COPD exacerbation - Increased dyspnea and sputum production - hypoxia - CXR w/ consolidation or vascular congestion - Satting upper 80s on RA, on 3L satting upper 90's, stable off BiPAP - Blood gas ordered, pending - Duonebs q4h james, q2hr prn - 40mg methylpred x5 days, loading dose in ED - Procal and RVP ordered - COPD exacerbation, will continue azithro and cefepime - Monitor respiratory status Hx of CHF - No fluid overload on exam, no LE edema - Echo 1 mo ago: EF 60-65%, Mild MR and TR - BNP in 400's in [facility] - will monitor fluid status, strict I/O - cont ASA 81mg and home lasix HLD - on lovastatin HTN - BP stable, cont home meds, monitor - gets soft pressures on BiPAP CKDIIIa - BUN elevated at 27, Cr 1.06 - GFR currently 49 FELA - PCP discontinued CPAP use per pt, will monitor overnight Dementia - A/Ox2-3, understandings medical conditions and situation, able to make medical decision at this time Code: DNR - per MPOA IVF: SL Diet: Regular Dispo: Admit to tele inpt for close respiratory monitoring and possible escalation to BiPAP. ELOS > 48hr PCP: Rito GUZMAN H&P: Upper Level - Pertinent history 88 yo F presents for increasing SOB and cough. Pt recently treated for pneumonia in OP setting. CXR on arrival showed no evidence of pneumnia; however , pt does report increasing Sputum and SOB. - Plan Date/Time: 07/11/19 191 ISteve, , have evaluated this patient and agree with findings/ plan as outlined by wireless internet installer resident. Pertinent changes/additions are listed here. I was present for pt interview and discussed in detail assessment and plan with Dr. Dolan. Agree with findings as described above. Will treat for COPD exacerbation with empiric abx and scheduled nebs. Check ABG. O2 support prn. Maintain O2 sats 88-92. Procalcitonin pending, consider RVP if neg. Addendum - Attending - Attending Attestation Date/Time: 07/12/19 [id number] I personally evaluated the patient and discussed the management with Dr. Dolan. I agree with the History, Examination, Assessment and Plan documented above with any addition or exceptions noted below. See my separate note from time of admission.
[2019-07-11] MEDS ORDERED: Azithromycin 500 MG VIAL ONE (20:17)
--- NOTE | 2019-07-11 21:28 | PDOC.BPN ---
- Brief Progress Note Date/Time: 07/11/192122 I personally evaluated the patient and discussed the management with Dr. Dolan. I agree with the History, Examination, Assessment and Plan documented above with any addition or exceptions noted below. She has clinical signs of COPD exacerbation. She had bilateral rhonchi that suggest viral or bacterial pneumonia, however the clinical picture for pneumonia is not strong. Will treat empirically for CAP,along with main diagnosis of COPD exacerbation. Checking ABG. May need bipap if deteriorates. Ms. Hager is confirmed DNAR by daughter who is her surrogate decision maker. Patient is able to hold a conversation but her mental capacity is limited by dementia and illness such that her MPOA for care consent.
[2019-07-11 23:31] VITALS: BMI 26.7
[2019-07-12] MEDS ORDERED: Haloperidol Lactate 5 MG/ML VIAL SLOW IVP PRN (00:29)
[2019-07-12 00:37] LABS: Actual Bicarbonate (HCO3a) 31.2 mEq/L (22-28); Base Excess (BEa) 4.7 mEq/L (-2.0 to +3.0); CO2 Tension 54.9 mmHg (35.0-45.0); Calcium, Ionized 1.16 mmol/L (1.12-1.30); Carboxyhemoglobin (COHb) 0.5 gm% (0.0-3.0); Hemoglobin (Hb) 12.5 g/dL (12.0-16.0); O2 Tension (PaO2) 231.2 mmHg (> 60.0); Potassium - ABG Lab 3.34 mmol/L (3.70-5.30); pH, Arterial 7.37 (7.35-7.45)
[2019-07-12 00:38] LABS: Puncture Site RBRACHIAL
[2019-07-12 00:39] LABS: ALV-art Gradient -100.185 (0-20)
[2019-07-12] MEDS: cefTRIAXone\\ROCEPHIN 1 GM in Sodium Chloride 0.9% 100 ML IVPB SCH ×2 (00:44→21:26)
[2019-07-12 05:10] LABS: Anion Gap 14 mmol/L (10-20); BUN (Urea Nitrogen) 27 mg/dL (9.8-20.1); Calc. Creatinine Clearance 42 mL/min (70-130); Calcium 9.2 mg/dL (7.8-10.44); Carbon Dioxide 35 mmol/L (23-31); Chloride 96 mmol/L (98-107); Estimated GFR-MDRD 48; Glucose 167 mg/dL (83-110); Potassium 3.4 mmol/L (3.5-5.1); Sodium 142 mmol/L (136-145)
[2019-07-12 05:30] LABS: Band 4 % (5-11); Elliptocytes SLIGHT = 2-5 cells (100X) (0-1/hpf); Hemoglobin 12.2 g/dL (12.0-16.0); Lymphocytes 4 % (21-51); MDiff Complete? YES; Mean Corpuscular Hemoglobin 31.2 pg (27.0-31.0); Mean Corpuscular Volume 94.4 fL (78.0-98.0); Mean Platelet Volume 7.4 fL (7.4-10.4); Metamyelocyte 1 % (0-0); Monocytes 2 % (0-10); Neutrophil 89 % (42-75); Platelet Count 280 thou/uL (130-400); Platelet Morphology Comment Appears Adequate; RBC Distribution Width 12.3 % (11.5-14.5); Red Blood Cell (RBC) Count 3.91 mill/uL (4.20-5.40); White Blood Cell (WBC) Count 14.8 thou/uL (4.8-10.8)
--- NOTE | 2019-07-12 06:39 | PDOC.FM ---
- Subjective Subjective: Patricia Hager seen at bedside this morning. States that her breathing is slowly starting to improve. Spoke to nursing staff who removed NC this morning because patient was 92-94% on RA. Denies any acute events overnight and no complaints this morning. She denies fever, chills, chest pain, abdominal pain/n /v, LE edema. 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 - Objective MAR Reviewed: Yes Vital Signs & Weight: Vital Signs (12 hours) Temp Pulse Resp BP Pulse Ox 07/12/19 06:33 77 18 92 L 07/12/19 04:05 97.4 F L 72 20 112/56 L 95 07/12/19 00:19 87 16 98 07/12/19 00:00 98 07/11/19 23:30 97.7 F 80 20 135/62 99 Weight Weight 72.938 kg Result Diagrams: 07/12/19 04:11 07/12/19 04:11 Radiology Reviewed by me: Yes Phys Exam - Physical Examination Constitutional: NAD HEENT: moist MMs, sclera anicteric Neck: supple, full ROM Respiratory: no rales, no rhonchi, wheezing present diffuse expiratory wheezes bilaterally Cardiovascular: RRR, no significant murmur Gastrointestinal: soft, non-tender, no distention Musculoskeletal: no edema, pulses present Neurological: non-focal, normal sensation, moves all 4 limbs Psychiatric: normal affect, A&O x 3 Skin: no rash, cap refill <2 seconds Dx/Plan (1) Acute respiratory failure with hypoxia and hypercapnia Code(s): J96.01 - ACUTE RESPIRATORY FAILURE WITH HYPOXIA; J96.02 - ACUTE RESPIRATORY FAILURE WITH HYPERCAPNIA Status: Acute (2) COPD exacerbation Code(s): J44.1 - CHRONIC OBSTRUCTIVE PULMONARY DISEASE W (ACUTE) EXACERBATION Status: Acute (3) Chronic kidney disease, stage 3 Code(s): N18.3 - CHRONIC KIDNEY DISEASE, STAGE 3 (MODERATE) Status: Chronic (4) Dementia Code(s): F03.90 - UNSPECIFIED DEMENTIA WITHOUT BEHAVIORAL DISTURBANCE Status: Chronic (5) CHF (congestive heart failure) Code(s): I50.9 - HEART FAILURE, UNSPECIFIED Status: Chronic (6) HLD (hyperlipidemia) Code(s): E78.5 - HYPERLIPIDEMIA, UNSPECIFIED Status: Chronic (7) HTN (hypertension) Code(s): I10 - ESSENTIAL (PRIMARY) HYPERTENSION Status: Chronic (8) FELA (obstructive sleep apnea) Code(s): G47.33 - OBSTRUCTIVE SLEEP APNEA (ADULT) (PEDIATRIC) Status: Chronic - Plan Plan: Acute hypoxic hypercapneic respiratory failure 2/2 COPD exacerbation - Increased dyspnea and sputum production and cough - hypoxia requiring BiPAP in ED - CXR without consolidation or vascular congestion. Showed mild vascular congestion and cardiomegaly - On admission Satting upper 80s on RA, on 3L satting upper 90's, take off bipap in ED - ABG showed pH 7.37, pCO2 54.9, pO2 231 - Duonebs q4h james, q2hr prn - 40mg methylpred x5 days, loading dose in ED - Procal was 0.02 and RVP pending - COPD exacerbation, will continue azithro and cefepime - this morning, doing well on RA, O2 taken off at 0630 this morning Hx of CHF - No fluid overload on exam, no LE edema - Echo 1 mo ago: EF 60-65%, Mild MR and TR - BNP in 400's in [place] - will monitor fluid status, strict I/O - cont ASA 81mg and home lasix HLD - on lovastatin HTN - BP stable, cont home meds, monitor - gets soft pressures on BiPAP CKDIIIa - BUN elevated at 27, Cr 1.06 - GFR currently 49 FELA - PCP discontinued CPAP use per pt, will monitor overnight Dementia - A/Ox2-3, understandings medical conditions and situation, able to make medical decision at this time
[2019-07-12] MEDS: predniSONE 20 MG TAB PO SCH (09:04)
[2019-07-12] MEDS: Gabapentin 300 MG CAP PO SCH ×3 (09:05→21:23)
[2019-07-12] MEDS: Atenolol 25 MG TAB PO SCH (09:05)
[2019-07-12] MEDS: Aspirin 81 mg Enteric Coated Tablet PO SCH (09:06)
[2019-07-12] MEDS: Multivitamin W/ Minerals 1 TAB PO SCH (09:06)
[2019-07-12] MEDS: Furosemide 20 MG TAB PO SCH (09:06)
[2019-07-12] MEDS: Ascorbic Acid 500 mg Chewable Tablet PO SCH (09:06)
[2019-07-12] MEDS: Enoxaparin Sodium 40 MG/0.4 ML SYRINGE SC SCH (09:06)
[2019-07-12] MEDS: Lisinopril 20 MG TAB PO SCH (09:06)
[2019-07-12] MEDS: Azithromycin 500 MG in Sodium Chloride 0.9% 250 ML 250 ML IVPB SCH (17:36)
[2019-07-12] MEDS: Pramipexole Di-HCl 0.25 MG TAB PO SCH (21:23)
[2019-07-12] MEDS: Simvastatin 5 MG TAB PO SCH (21:23)
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
[2019-07-13] MEDS: Enoxaparin Sodium 40 MG/0.4 ML SYRINGE SC SCH ×2 (09:00→10:28)
[2019-07-13] MEDS: Gabapentin 300 MG CAP PO SCH ×3 (09:00→20:35)
[2019-07-13] MEDS: predniSONE 20 MG TAB PO SCH (09:00)
[2019-07-13] MEDS: Ascorbic Acid 500 mg Chewable Tablet PO SCH (09:01)
[2019-07-13] MEDS: Atenolol 25 MG TAB PO SCH (09:01)
[2019-07-13] MEDS: Furosemide 20 MG TAB PO SCH (09:01)
[2019-07-13] MEDS: Multivitamin W/ Minerals 1 TAB PO SCH (09:01)
[2019-07-13] MEDS: Aspirin 81 mg Enteric Coated Tablet PO SCH (09:10)
[2019-07-13] MEDS: Lisinopril 20 MG TAB PO SCH (09:10)
--- NOTE | 2019-07-13 12:48 | RAD ---
Chest AP view INDICATION: Rule out pneumonia COMPARISON: July 11, 2019 FINDINGS: Lungs:No definite airspace consolidation is evident. Cardiac silhouette:The cardiomediastinal silhouette appears within normal limits. Pulmonary vasculature:Normal Pleural spaces:No pleural effusion or pneumothorax is demonstrated. Upper abdomen:No abnormality seen. Osseous structures: Stable ACDF of the lower cervical spine. There is scattered degenerative and oste oarthritic change present. Additional findings:None. IMPRESSION: No acute cardiopulmonary abnormality.
[2019-07-13 16:26] LABS: #Lymphocytes 0.6 thou/uL (1.20-3.40); #Monocytes 0.3 thou/uL (0.11-0.59); #Neutrophils 15.3 thou/uL (1.40-6.50); %Basophils 0.1 % (0.0-1.0); %Eosinophils 0.1 % (0.0-10.0); %Lymphocytes 3.9 % (21.0-51.0); %Monocytes 1.8 % (0.0-10.0); %Neutrophils 94.1 % (42.0-75.0); Hemoglobin 11.4 g/dL (12.0-16.0); Mean Corpuscular HGB CONC 32.2 g/dL (32.0-36.0); Mean Corpuscular Hemoglobin 30.6 pg (27.0-31.0); Mean Corpuscular Volume 95.1 fL (78.0-98.0); Platelet Count 337 thou/uL (130-400); RBC Distribution Width 12.6 % (11.5-14.5); Red Blood Cell (RBC) Count 3.73 mill/uL (4.20-5.40); White Blood Cell (WBC) Count 16.2 thou/uL (4.8-10.8)
[2019-07-13 16:45] LABS: Anion Gap 14 mmol/L (10-20); BUN (Urea Nitrogen) 41 mg/dL (9.8-20.1); Calc. Creatinine Clearance 30 mL/min (70-130); Calcium 9.4 mg/dL (7.8-10.44); Carbon Dioxide 34 mmol/L (23-31); Chloride 96 mmol/L (98-107); Estimated GFR-MDRD 33; Glucose 268 mg/dL (83-110); Potassium 3.5 mmol/L (3.5-5.1); Sodium 140 mmol/L (136-145)
[2019-07-13] MEDS: Acetaminophen 325 MG TAB PO PRN (17:19)
[2019-07-13] MEDS: Azithromycin 500 MG in Sodium Chloride 0.9% 250 ML 250 ML IVPB SCH (17:20)
[2019-07-13] MEDS: Pramipexole Di-HCl 0.25 MG TAB PO SCH (20:34)
[2019-07-13] MEDS: Simvastatin 5 MG TAB PO SCH (20:35)
[2019-07-13] MEDS: cefTRIAXone\\ROCEPHIN 1 GM in Sodium Chloride 0.9% 100 ML IVPB SCH (20:35)
[2019-07-14 04:52] LABS: Anion Gap 12 mmol/L (10-20); BUN (Urea Nitrogen) 41 mg/dL (9.8-20.1); Calc. Creatinine Clearance 39 mL/min (70-130); Calcium 9.1 mg/dL (7.8-10.44); Carbon Dioxide 36 mmol/L (23-31); Chloride 96 mmol/L (98-107); Estimated GFR-MDRD 42; Glucose 98 mg/dL (83-110); Potassium 3.5 mmol/L (3.5-5.1); Sodium 140 mmol/L (136-145)
[2019-07-14 04:54] LABS: Hemoglobin 10.8 g/dL (12.0-16.0); Lymphocytes 16 % (21-51); MDiff Complete? YES; Mean Corpuscular HGB CONC 33.2 g/dL (32.0-36.0); Mean Corpuscular Hemoglobin 31.7 pg (27.0-31.0); Mean Corpuscular Volume 95.6 fL (78.0-98.0); Mean Platelet Volume 7.2 fL (7.4-10.4); Monocytes 6 % (0-10); Neutrophil 78 % (42-75); Platelet Count 318 thou/uL (130-400); Platelet Morphology Comment Appears Adequate; RBC Distribution Width 12.6 % (11.5-14.5); Red Blood Cell (RBC) Count 3.41 mill/uL (4.20-5.40); White Blood Cell (WBC) Count 14.9 thou/uL (4.8-10.8)
--- NOTE | 2019-07-14 06:45 | PDOC.FM ---
- Subjective Subjective: Patient is doing much better this morning. She reports SOB, no chest pain. Patient denies cough, but is coughing while we speak. She is much happier this morning than yesterday. Patient states she has constipation. No acute events overnight, patient did not require restraints or haldol. - Objective Vital Signs & Weight: Vital Signs (12 hours) Temp Pulse Resp BP Pulse Ox 07/14/19 06:34 92 L 07/14/19 06:32 79 20 92 L 07/14/19 03:59 98.0 F 89 18 137/65 97 07/14/19 02:16 86 19 95 07/13/19 22:24 90 18 96 07/13/19 20:00 94 L 07/13/19 18:54 94 20 94 L Weight Weight 74.48 kg I&O: 07/12/19 07/13/19 07/14/19 06:59 06:59 06:59 Intake Total 596 996 9184 Output Total 250 200 Balance 60 200 1030 Result Diagrams: 07/14/19 03:56 07/14/19 03:56 Phys Exam - Physical Examination Constitutional: NAD Diffuse rhonchi and expiratory wheezing Cardiovascular: RRR, no significant murmur Gastrointestinal: soft, non-tender, positive bowel sounds Musculoskeletal: no edema, pulses present Neurological: non-focal, moves all 4 limbs Psychiatric: normal affect Skin: normal turgor, cap refill <2 seconds Dx/Plan (1) Acute respiratory failure with hypoxia and hypercapnia Code(s): J96.01 - ACUTE RESPIRATORY FAILURE WITH HYPOXIA; J96.02 - ACUTE RESPIRATORY FAILURE WITH HYPERCAPNIA Status: Acute (2) History of congestive heart failure Code(s): Z86.79 - PERSONAL HISTORY OF OTHER DISEASES OF THE CIRCULATORY SYSTEM Status: Chronic (3) Chronic kidney disease, stage 3 Code(s): N18.3 - CHRONIC KIDNEY DISEASE, STAGE 3 (MODERATE) Status: Chronic (4) Dementia Code(s): F03.90 - UNSPECIFIED DEMENTIA WITHOUT BEHAVIORAL DISTURBANCE Status: Chronic (5) COPD exacerbation Code(s): J44.1 - CHRONIC OBSTRUCTIVE PULMONARY DISEASE W (ACUTE) EXACERBATION Status: Acute (6) HLD (hyperlipidemia) Code(s): E78.5 - HYPERLIPIDEMIA, UNSPECIFIED Status: Chronic (7) HTN (hypertension) Code(s): I10 - ESSENTIAL (PRIMARY) HYPERTENSION Status: Chronic (8) Constipation Code(s): K59.00 - CONSTIPATION, UNSPECIFIED Status: Acute - Plan Plan: Acute hypoxic hypercapneic respiratory failure 2/2 COPD exacerbation from Parainfluenza Virus - Increased dyspnea and sputum production and cough - hypoxia requiring BiPAP in ED - CXR without consolidation - ABG showed pH 7.37, pCO2 54.9, pO2 231 - Duonebs q4h james, q2hr prn - 40mg methylpred x5 days (starting 07/11), loading dose in ED - Procal was 0.02 and RVP showed parainfluenza - COPD exacerbation, will continue azithro and rocephin - Patient on RA this AM, will continue to monitor today. She is pending placement at [facility]. HFpEF - No fluid overload on exam, no LE edema - Echo 1 mo ago: EF 60-65%, Mild MR and TR - BNP in 400's in [place] - will monitor fluid status, strict I/O - cont ASA 81mg and home lasix 20 mg qd HLD - on lovastatin HTN - BP stable, cont home meds, monitor - gets soft pressures on BiPAP CKDIIIa - BUN elevated at 27, Cr 1.06 FELA - PCP discontinued CPAP use per pt Dementia - A/Ox2-3, understandings medical conditions and situation Constipation -Added miralax Dispo: Continue antibiotic and steroids for 5 day course. Pending placement at [facility]. Addendum - Attending - Attending Attestation Date/Time: 07/14/19 7300 I personally evaluated the patient and discussed the management with Dr. Hartman I agree with the History, Examination, Assessment and Plan documented above with any addition or exceptions noted below. This patient is continuing to improve. She passed a walking test yesterday with no significant drop in her O2 saturation. We are continuing to treat her COPD, which is improving clinically. Overnight, nursing reports she was less confused. She will likely need another day before being discharged to the fpc.
[2019-07-14] MEDS: predniSONE 20 MG TAB PO SCH (09:11)
[2019-07-14] MEDS: Polyethylene Glycol 3350 17 GM Packet PO SCH (09:12)
[2019-07-14] MEDS: Ascorbic Acid 500 mg Chewable Tablet PO SCH (09:12)
[2019-07-14] MEDS: Lisinopril 20 MG TAB PO SCH (09:12)
[2019-07-14] MEDS: Enoxaparin Sodium 40 MG/0.4 ML SYRINGE SC SCH (09:12)
[2019-07-14] MEDS: Gabapentin 300 MG CAP PO SCH ×3 (09:12→21:45)
[2019-07-14] MEDS: Atenolol 25 MG TAB PO SCH (09:12)
[2019-07-14] MEDS: Multivitamin W/ Minerals 1 TAB PO SCH (09:12)
[2019-07-14] MEDS: Furosemide 20 MG TAB PO SCH (09:12)
[2019-07-14] MEDS: Aspirin 81 mg Enteric Coated Tablet PO SCH (09:12)
[2019-07-14] MEDS: Azithromycin 500 MG in Sodium Chloride 0.9% 250 ML 250 ML IVPB SCH (17:12)
--- NOTE | 2019-07-14 18:20 | PQF ---
MARGARITA LEVY TIM PASTOR [id number] CLINICAL DOCUMENTATION IMPROVEMENT CLARIFICATION FORM: ICD-10 Updated PLEASE DO AN ADDENDUM TO THE PROGRESS NOTE WITH ANY DOCUMENTATION UPDATES OR ADDITIONS AND CARRY THROUGH TO DC SUMMARY. THANK YOU. DATE: 07/14/19 ATTN: Please exercise your independent, professional judgment in responding to the clarification form. Clinical indicators are provided on the bottom of this form for your review Please check appropriate box(s): HFpEF: A. ACUITY [x ] Chronic [ ] Other diagnosis [ ] Unable to determine In addition, please specify: Present on Admission (POA): [ x ] Yes [ ] No [ ] Unable to determine For continuity of documentation, please document condition throughout progress notes and discharge summary. Thank You. CLINICAL INDICATORS - SIGNS / SYMPTOMS / LABS / RESULTS AND LOCATION IN EMR 07/11 Moi: "Echo 1 mo ago: EF 60-65%, mild MR and TR." 07/13 Minnie: "HFpEF, no fluid overload on exam, no LE edema." RISKS FACTORS / RESULTS AND LOCATION IN EMR "HTN, CKD" 3 per 07/11 Kelsi TREATMENTS / RESULTS AND LOCATION IN EMR Administration of BARI / BB--> Lisinopril 20mg PO daily; Atenolol 25mg po QAM -date per orders Cardiac monitoring / telemetry 07/11 per orders PO Diuretics--> Lasix 20mg qd 07/12 to date per orders Oxygen 07/11 orders Signed by Raghav Pastor MD 07/15/2019 @ 0622 (This form is maintained as a part of the permanent medical record) 2014 [email or web address]. All Rights Reserved Calli Olivera, RN, BSN, CCDS [email or web address] [phone] MTDD
[2019-07-14] MEDS: Acetaminophen 325 MG TAB PO PRN (18:35)
[2019-07-14] MEDS: Simvastatin 5 MG TAB PO SCH (21:44)
[2019-07-14] MEDS: cefTRIAXone\\ROCEPHIN 1 GM in Sodium Chloride 0.9% 100 ML IVPB SCH (21:45)
[2019-07-14] MEDS: Pramipexole Di-HCl 0.25 MG TAB PO SCH (21:45)
--- NOTE | 2019-07-15 09:15 | PDOC.FM ---
- Subjective Subjective: Patient states she is feeling well this morning. States she still has some shortness of breath. Reports her cough has improved. - Objective Vital Signs & Weight: Vital Signs (12 hours) Temp Pulse Resp BP Pulse Ox 07/15/19 07:23 94 L 07/15/19 06:28 92 L 07/15/19 06:27 78 16 92 L 07/15/19 03:55 98.0 F 81 20 125/58 L 92 L 07/15/19 02:06 77 16 95 07/14/19 22:09 78 18 96 07/14/19 21:45 91 L Weight Weight 74.843 kg I&O: 07/14/19 07/15/19 07/16/19 06:59 06:59 06:59 Intake Total 1230 1670 Output Total 200 400 Balance 1030 1270 Result Diagrams: 07/14/19 03:56 07/14/19 03:56 Phys Exam - Physical Examination Constitutional: NAD sitting up in bed, eating breakfast diffuse inspiratory and expiratory wheezing, rhonchi improved, no crackles Cardiovascular: RRR, no significant murmur Gastrointestinal: soft, non-tender, positive bowel sounds Neurological: moves all 4 limbs trace edema Psychiatric: normal affect Skin: normal turgor, cap refill <2 seconds Dx/Plan (1) Acute respiratory failure with hypoxia and hypercapnia Code(s): J96.01 - ACUTE RESPIRATORY FAILURE WITH HYPOXIA; J96.02 - ACUTE RESPIRATORY FAILURE WITH HYPERCAPNIA Status: Acute (2) History of congestive heart failure Code(s): Z86.79 - PERSONAL HISTORY OF OTHER DISEASES OF THE CIRCULATORY SYSTEM Status: Chronic (3) Chronic kidney disease, stage 3 Code(s): N18.3 - CHRONIC KIDNEY DISEASE, STAGE 3 (MODERATE) Status: Chronic (4) Dementia Code(s): F03.90 - UNSPECIFIED DEMENTIA WITHOUT BEHAVIORAL DISTURBANCE Status: Chronic (5) COPD exacerbation Code(s): J44.1 - CHRONIC OBSTRUCTIVE PULMONARY DISEASE W (ACUTE) EXACERBATION Status: Acute (6) HLD (hyperlipidemia) Code(s): E78.5 - HYPERLIPIDEMIA, UNSPECIFIED Status: Chronic (7) HTN (hypertension) Code(s): I10 - ESSENTIAL (PRIMARY) HYPERTENSION Status: Chronic (8) Constipation Code(s): K59.00 - CONSTIPATION, UNSPECIFIED Status: Acute - Plan Plan: Acute hypoxic hypercapneic respiratory failure 2/2 COPD exacerbation from Parainfluenza Virus - Increased dyspnea and sputum production and cough - hypoxia requiring BiPAP in ED - CXR without consolidation - ABG showed pH 7.37, pCO2 54.9, pO2 231 - Duonebs q4h james, q2hr prn - 40mg methylpred x5 days (starting 07/11), loading dose in ED - Procal was 0.02 and RVP showed parainfluenza - COPD exacerbation, will continue azithro and rocephin - Patient on RA this AM. Stable for discharge. She is pending placement at [facility]. - Plan to start spiriva inhaler at discharge Acute Hypercapnic Encephalopathy, resolved -Pt has COPD -Patient had 2 episodes confusion earlier in her hospital stay, was threatening staff with butter knife and cutting out IV -Likely 2/2 to excessive O2 via BNC causing hypercarbia as patient's respiratory drive is O2 dependent -confusion now resolved now that patient has been on RA HFpEF - No fluid overload on exam, no LE edema - Echo 1 mo ago: EF 60-65%, Mild MR and TR - BNP in 400's in [place] - will monitor fluid status, strict I/O - cont ASA 81mg and home lasix 20 mg qd HLD - on lovastatin HTN - BP stable, cont home meds, monitor CKDIIIa - stable FELA - PCP discontinued CPAP use per pt Dementia - A/Ox2-3, understandings medical conditions and situation Constipation -Added miralax Dispo: Patient stable for discharge today, pending any clinical picture changes. Pending placement at [facility]. Addendum - Attending - Attending Attestation Date/Time: 07/15/19 1043 I personally evaluated the patient and discussed the management with Dr. Hartman I agree with the History, Examination, Assessment and Plan documented above with any addition or exceptions noted below. Pt has been improving from a respiratory standpoint. Plan to discharge today with HH, duoneb treatments, and spiriva for breathing. We will touch base with daughter today prior to discharge.
[2019-07-15] MEDS: predniSONE 20 MG TAB PO SCH (09:42)
[2019-07-15] MEDS: Multivitamin W/ Minerals 1 TAB PO SCH (09:43)
[2019-07-15] MEDS: Lisinopril 20 MG TAB PO SCH (09:43)
[2019-07-15] MEDS: Atenolol 25 MG TAB PO SCH (09:43)
[2019-07-15] MEDS: Gabapentin 300 MG CAP PO SCH ×2 (09:43→15:54)
[2019-07-15] MEDS: Enoxaparin Sodium 40 MG/0.4 ML SYRINGE SC SCH (09:43)
[2019-07-15] MEDS: Aspirin 81 mg Enteric Coated Tablet PO SCH (09:44)
[2019-07-15] MEDS: Furosemide 20 MG TAB PO SCH (09:44)
[2019-07-15] MEDS: Ascorbic Acid 500 mg Chewable Tablet PO SCH (09:44)
[2019-07-15] MEDS: Polyethylene Glycol 3350 17 GM Packet PO SCH (09:44)
[2019-07-15] MEDS ORDERED: Azithromycin 250 MG TAB PO SCH (11:30)
[2019-07-15 16:22] VITALS: BP 159/71; TEMP 98.1
--- NOTE | 2019-07-16 10:03 | DIS ---
DATE OF ADMISSION: 07/11/2019 DATE OF DISCHARGE: 07/15/2019 RESIDENT: Emma Hartman MD ADMITTING ATTENDING: Brayden Pace MD DISCHARGE ATTENDING: Haim English MD CONSULTS: None. PROCEDURE: Chest x-ray, 07/13/2019, no acute cardiopulmonary abnormality. PRIMARY DIAGNOSES: 1. Acute hypoxic hypercapnic respiratory failure secondary to chronic obstructive pulmonary disease exacerbation from parainfluenza virus 2. Acute hypercapnic encephalopathy. SECONDARY DIAGNOSES: 1. Heart failure, preserved ejection fraction. 2. Hyperlipidemia. 3. Hypertension. 4. Chronic kidney disease 3A. 5. Obstructive sleep apnea. 6. Dementia. 7. Constipation. DISCHARGE MEDICATIONS: 1. DuoNeb 3 mL nebulizer q.4 hours p.r.n. for shortness of breath or wheezing. 2. MiraLAX 17 g p.o. daily as needed for constipation. 3. Pramipexole 0.5 mg p.o. every evening for restless legs syndrome. 4. Albuterol sulfate HFA 2 puffs inhalation q.6 hours p.r.n. for shortness of breath or wheezing. 5. Lovastatin 1 tab p.o. at bedtime. 6. Gabapentin 600 mg p.o. t.i.d. 7. Atenolol 1 tablet p.o. q.a.m. 8. Ascorbic acid 500 mg p.o. daily. 9. Multivitamin 1 tab p.o. daily. 10. Aspirin 81 mg p.o. daily. 11. Lisinopril 20 mg p.o. daily. 12. Furosemide 20 mg p.o. daily. 13. Cholecalciferol 1000 units p.o. daily. 14. Tiotropium bromide 4 g inhalation daily. DISCONTINUED MEDICATIONS: None. HISTORY OF PRESENT ILLNESS/HOSPITAL COURSE: An 88-year-old female who presents as transfer from [facility]. She was recently diagnosed pneumonia while in the custodial for respiratory care over the last 2 weeks. Discharged from the custodial per daughter one week ago. However, the daughter went out of state for a . The patient states for the last 2 days, she has had increasing shortness of breath and cough and earlier in morning had acute worsening of her shortness of breath. She called a family friend, who brought her to the ED. The patient was tachypneic and hypoxic, placed on BiPAP in the ED. Chest x-ray did not show pneumonia. The patient was then transferred here. The patient has a history of chronic dementia, which limited her history. The patient arrived in our ED on 4 L nasal cannula and developed shortness of breath and was placed on BiPAP. The patient was treated for COPD exacerbation with steroids, DuoNeb, and magnesium. She received azithro and cefepime. She has taken off BiPAP prior to admission with O2 saturation stable on 3 to 4 L. She was continued on methylprednisone, azithromycin, and Rocephin throughout her stay. Viral panel was positive for parainfluenza virus. Her respirations improved during her stay here. She was stable on room air for 24 hrs prior to discharge. Discharged home in good condition. The patient had episodes of confusion, likely secondary to hypercapnia. The patient was placed on oxygen administration. She became confused, was threatening staff with butter knife and cutting at her IV. The patient was given a dose of Haldol. Her O2 was discontinued and her mentation rapidly resolved in the next 12-24 hours. I do not think the patient is a good candidate for home oxygen due to the O2 dependence for her respiratory drive. Heart failure with preserved ejection fraction. The patient was not fluid overloaded on exam with no lower extremity edema. Echo showed EF of 60% to 65% with mild mitral regurgitation, mild tricuspid regurgitation. Her BNP was 400 in [place]. Her fluid status is monitored with strict I's and O's as she was continued on her home medications. She did not show s/s of fluid overload on exam. The family had wanted the patient to be placed at [facility]. A referral was placed. However, the patient was not accepted, was denied by her insurance. The family did not want to do self-pay and and took the patient home to care for her. DISPOSITION: Stable. DISCHARGE INSTRUCTIONS: 1. Location: Home. 2. Diet: Heart healthy. 3. Activity: As tolerated. 4. Followup: Follow up with PCP, Dr. Mendez within 1 week. Job ID: [id number] MTDD
== END 2019-07-15 17:57 | disposition home or self-care (01) | DRG 189 ==
LOC: ERS 17:38 → 2NO 18:18
PROVIDERS: ADMIT Family Medicine; ATTEND Family Medicine
DX: J96.01 Acute respiratory failure with hypoxia (principal); I13.0 Hypertensive heart and chronic kidney disease with heart failure and stage 1 through stage 4 chronic kidney disease, or unspecified chronic kidney disease; J44.1 Chronic obstructive pulmonary disease with (acute) exacerbation; I50.32 Chronic diastolic (congestive) heart failure; G93.49 Other encephalopathy; J44.0 Chronic obstructive pulmonary disease with (acute) lower respiratory infection; Z88.8 Allergy status to other drugs, medicaments and biological substances; J96.02 Acute respiratory failure with hypercapnia; Z79.82 Long term (current) use of aspirin; Z79.899 Other long term (current) drug therapy; N18.3 Chronic kidney disease, stage 3 (moderate); E78.5 Hyperlipidemia, unspecified; G47.33 Obstructive sleep apnea (adult) (pediatric); F03.90 Unspecified dementia, unspecified severity, without behavioral disturbance, psychotic disturbance, mood disturbance, and anxiety; Z66 Do not resuscitate; K59.00 Constipation, unspecified; B34.8 Other viral infections of unspecified site
CPT/HCPCS: 36415; 71045; 80048; 81003; 82805; 84145; 85025; 87633; 93005; 94640; 94660; J0456; J0692; J0696; J1650; J3475; J3490; J7050; J7512; J7620

== ENCOUNTER 2020-04-10 04:41 | Observation (INO) | payer MEDICARE, OTHER ==
[2020-04-10 05:32] LABS: #Lymphocytes 0.7 thou/uL (1.20-3.40); #Monocytes 0.2 thou/uL (0.11-0.59); #Neutrophils 5.2 thou/uL (1.40-6.50); %Basophils 0.4 % (0.0-1.0); %Eosinophils 0.1 % (0.0-10.0); %Lymphocytes 10.9 % (21.0-51.0); %Monocytes 3.6 % (0.0-10.0); Hemoglobin 14.1 g/dL (12.0-16.0); Mean Corpuscular HGB CONC 33.1 g/dL (32.0-36.0); Mean Corpuscular Hemoglobin 31.1 pg (27.0-31.0); Mean Platelet Volume 7.4 fL (7.4-10.4); Platelet Count 361 thou/uL (130-400); RBC Distribution Width 11.3 % (11.5-14.5); Red Blood Cell (RBC) Count 4.52 mill/uL (4.20-5.40); White Blood Cell (WBC) Count 6.1 thou/uL (4.8-10.8)
[2020-04-10 05:55] LABS: ALT (SGPT) 8 U/L (8-55); AST (SGOT) 16 U/L (5-34); Albumin 3.9 g/dL (3.4-4.8); Alkaline Phosphatase 107 U/L (40-110); Anion Gap 15 mmol/L (10-20); BUN (Urea Nitrogen) 15 mg/dL (9.8-20.1); Bilirubin, Total 0.5 mg/dL (0.2-1.2); Calc. Creatinine Clearance 0 mL/min (70-130); Calcium 9.8 mg/dL (7.8-10.44); Carbon Dioxide 28 mmol/L (23-31); Chloride 101 mmol/L (98-107); Estimated GFR-MDRD 70; Glucose 150 mg/dL (83-110); Potassium 3.6 mmol/L (3.5-5.1); Protein, Total 6.9 g/dL (6.0-8.3); Sodium 140 mmol/L (136-145)
[2020-04-10 08:18] LABS: SARS-CoV-2 NAA Rapid Test Not Detected (NotDetected)
[2020-04-10] MEDS ORDERED: Senokot S 8.6-50 MG TAB PO PRN (08:55)
[2020-04-10] MEDS ORDERED: Acetaminophen 325 MG TAB PO PRN (08:55)
--- NOTE | 2020-04-10 08:58 | RAD ---
PORTABLE CHEST: HISTORY: Chest pain. COMPARISON: 07/13/2019 FINDINGS: Poor positioning degrades the exam. The lungs appear clear with no evidence of vascular congestion or edema. No infiltrate apparent. IMPRESSION: Suboptimal examination. No acute process identified. POS: AGW
[2020-04-10 09:24] VITALS: BMI 30.3
--- NOTE | 2020-04-10 09:33 | PDOC.HHP ---
Hospitalist HPI - History of Present Illness SOB and chest pain History of Present Illness: 89F presents to the ED via EMS from the [facility]. Nurses there told EMS that she was in isolation there due to some intermittent wheezing and SOB. She was tested for COVID on 04/08/20 but they had not received results yet. She was started on prednison and a Zpak yesterday, overnight she complained of SOB and chest pain so they sent her here after giving her a Duoneb. EMS gave her more albuterol. They report her breathing improved when they reminded her to take slower breaths. Initially 96% on 2L of NC, now 98% on RA. First troponin was negative. EKG from the ED will be repeated to verify results as it appears to be a sub-optimal attempt. Patient is a poor historian. History obtained from primary nurse at the [facility] and her daughter, Aysha Virk, who is her MPOA. States patient does not have a cardiac history but has a history of COPD and advanced dementia. Patient is also a Jehovah Witness, so no blood products allowed. Primary nurse at the [facility] stated she took care of her until noon yesterday and she was not having any issues. Daughter reports she was hospitalized in June 2019 with pneumonia. Daughter reports advanced dementia and has fits of rage. Recommended no metal silverware as she hoards knives. Last Echo was in Jun 2019 with an EF of 60-65% . Takes medication for dementia, HTN, HLD, restless leg syndrome. Hospitalist ROS - Review of Systems Constitutional: denies: fever, chills, sweats, weakness, malaise, other Eyes: denies: pain, vision change, conjunctivae inflammation, eyelid inflammation, redness, other ENT: denies: ear pain, ear discharge, nose pain, nose discharge, nose congestion , mouth pain, mouth swelling, throat pain, throat swelling, other Respiratory: reports: cough, shortness of breath Cardiovascular: reports: chest pain Gastrointestinal: denies: nausea, vomiting, abdominal pain, diarrhea, constipation, melena, hematochezia, other Other: ROS obtained through records and daughter and this limited. - Medication Medications: pramipexole Michaela Apr 10, 2020 05:47 TABLET : Strength - 0.5 mg : ORAL Patient Dose: 1 tab(s) Oral once a day (at bedtime). fluticasone nasal Sun Apr 10, 2020 05:47 SPRAY, SUSPENSION : Strength - 50 mcg : NASAL Patient Dose: 50 mcg Intranasal As Needed. gabapentin SatApr 10, 2020 05:47 CAPSULE : Strength - 300 mg : ORAL Patient Dose: 400 mg Oral 2 times a day. lisinopril SatApr 10, 2020 05:48 tablet : Strength - 20 mg : ORAL Patient Dose: 20 mg Oral once a day. Lasix oral SatApr 10, 2020 05:48 tablet : Strength - 20 mg : ORAL Patient Dose: 20 mg Oral once a day. traMADol SatApr 10, 2020 05:49 tablet : Strength - 50 mg : ORAL Patient Dose: 50 mg Oral every 4 hours prn. Tylenol SatApr 10, 2020 05:49 tablet : Strength - 325 mg : ORAL Patient Dose: 650 mg Oral every 6 hours PRN. Hospitalist History - Past Medical History Source: family, skilled nursing record, old records Cardiac: reports: HTN Pulmonary: reports: COPD (ED records indicate hx of CHF and CKD but last EF 60- 65% and GFR is normal), hypertension, pneumonia [employer]: reports: Dementia Gastrointestinal: reports: no pertinent history Heme/Onc: reports: no pertinent history Hepatobiliary: reports: no pertinent history Psych: reports: Other (dementia) Rheumatologic: reports: no pertinent history Infectious Disease: reports: no pertinent history ENT: reports: Allergic rhinitis Endocrine: reports: no pertinent history - Past Surgical History Past Surgical History: reports: Cholecystectomy, Hysterectomy, Total Knee Replacement - Family History Family History: reports: no pertinent history - Social History Smoking Status: Former smoker Alcohol: reports: None Drugs: reports: none Living Situation: Care Home - Exam Eye: PERRL ENT: normocephalic atraumatic, moist mucosa Neck: supple Heart: RRR, normal peripheral pulses Respiratory: CTAB, normal chest expansion, tachypneic Gastrointestinal: soft, normal bowel sounds Extremities: no edema Skin: normal turgor Neurological: cranial nerve grossly intact Psychiatric: oriented to person Psychiatric - other findings: was angry at being kept in the ED overnight; Hospitalist Results - Labs Result Diagrams: 04/10/20 05:01 04/10/20 05:01 Lab results: WBC 6.1 thou/uL (4.8-10.8) 04/10/20 05:01 Hgb 14.1 g/dL (12.0-16.0) 04/10/20 05:01 Hct 42.5 % (36.0-47.0) 04/10/20 05:01 MCV 94.0 fL (78.0-98.0) 04/10/20 05:01 Plt Count 361 thou/uL (130-400) 04/10/20 05:01 Neutrophils % 85.0 % (42.0-75.0) H 04/10/20 05:01 Sodium 140 mmol/L (136-145) 04/10/20 05:01 Potassium 3.6 mmol/L (3.5-5.1) 04/10/20 05:01 Chloride 101 mmol/L (98-107) 04/10/20 05:01 Carbon Dioxide 28 mmol/L (23-31) 04/10/20 05:01 BUN 15 mg/dL (9.8-20.1) 04/10/20 05:01 Creatinine 0.78 mg/dL (0.6-1.1) 04/10/20 05:01 Glucose 150 mg/dL (83-110) H 04/10/20 05:01 Calcium 9.8 mg/dL (7.8-10.44) 04/10/20 05:01 Total Bilirubin 0.5 mg/dL (0.2-1.2) 04/10/20 05:01 AST 16 U/L (5-34) 04/10/20 05:01 ALT 8 U/L (8-55) 04/10/20 05:01 Alkaline Phosphatase 107 U/L (40-110) 04/10/20 05:01 Troponin I 0.023 ng/mL (< 0.028) 04/10/20 04:47 B-Natriuretic Peptide 142.6 pg/mL (0-100) H 04/10/20 05:20 Serum Total Protein 6.9 g/dL (6.0-8.3) 04/10/20 05:01 Albumin 3.9 g/dL (3.4-4.8) 04/10/20 05:01 - Radiology Interpretation Chest x-ray Status: report reviewed by me (Poor study, per Radiologist, no acute process) Hospitalist H&P A/P - Problem (1) Dementia Code(s): F03.90 - UNSPECIFIED DEMENTIA WITHOUT BEHAVIORAL DISTURBANCE Status: Chronic (2) HLD (hyperlipidemia) Code(s): E78.5 - HYPERLIPIDEMIA, UNSPECIFIED Status: Chronic (3) HTN (hypertension) Code(s): I10 - ESSENTIAL (PRIMARY) HYPERTENSION Status: Chronic (4) FELA (obstructive sleep apnea) Code(s): G47.33 - OBSTRUCTIVE SLEEP APNEA (ADULT) (PEDIATRIC) Status: Chronic (5) COPD exacerbation Code(s): J44.1 - CHRONIC OBSTRUCTIVE PULMONARY DISEASE W (ACUTE) EXACERBATION Status: Acute (6) Chest pain Code(s): R07.9 - CHEST PAIN, UNSPECIFIED Status: Acute - Plan Plan: # Chest pain with SOB Repeat EKG; serial troponins; Duoneb q6 prn; currently 98% on RA; ASA 325mg ; rapid covid is negative #HTN- will restart her lisinopril #hx of HLD; will check fasting lipids #Dementia- will restart home meds #Restless leg- will restart home meds # DVT/PUD prophalyxis #Discussed case with Dr. Mancera Addendum - Attending - Attending Attestation Date/Time: 04/10/20 5996 I personally evaluated the patient and discussed the management with NATHALIA O' Anders[] I agree with the History, Examination, Assessment and Plan documented above. Patient presented with subacute/chronic progressively worsening pleuritic, positional, reproducible noncardiac left lateral thorax pain. Cardiac workup NTD. No acute cardiopulmonary findings on CXR. Will treat for musculoskeletal pain and continue to follow. ELOS 1 night
[2020-04-10] MEDS: Azithromycin 250 MG TAB PO SCH (11:09)
[2020-04-10] MEDS: Enoxaparin Sodium 40 MG/0.4 ML SYRINGE SC SCH (11:10)
[2020-04-10] MEDS: Donepezil HCl 5 MG TAB PO SCH (11:10)
[2020-04-10] MEDS: Famotidine 20 MG TAB PO SCH ×2 (11:10→21:51)
[2020-04-10] MEDS ORDERED: Pramipexole Di-HCl 0.25 MG TAB PO SCH (11:15)
[2020-04-10] MEDS ORDERED: Gabapentin 400 MG CAP PO SCH (11:15)
[2020-04-10 13:19] LABS: Troponin I 0.031 ng/mL (< 0.028)
[2020-04-10] MEDS: Ibuprofen 600 MG TAB PO SCH ×2 (17:39→21:50)
[2020-04-10] MEDS: Gabapentin 400 MG CAP PO SCH (21:50)
[2020-04-10] MEDS: Pramipexole Di-HCl 0.25 MG TAB PO SCH (21:50)
[2020-04-11] MEDS: Ibuprofen 600 MG TAB PO SCH ×2 (01:17→08:24)
[2020-04-11 04:43] LABS: #Basophils 0.1 thou/uL (0.0-0.2); #Eosinphils 0.1 thou/uL (0.0-0.7); #Lymphocytes 2.9 thou/uL (1.20-3.40); #Monocytes 0.5 thou/uL (0.11-0.59); #Neutrophils 2.6 thou/uL (1.40-6.50); %Basophils 0.9 % (0.0-1.0); %Eosinophils 2.1 % (0.0-10.0); %Lymphocytes 47.8 % (21.0-51.0); %Monocytes 7.8 % (0.0-10.0); %Neutrophils 41.5 % (42.0-75.0); Hemoglobin 12.9 g/dL (12.0-16.0); Mean Corpuscular HGB CONC 32.5 g/dL (32.0-36.0); Mean Corpuscular Hemoglobin 30.7 pg (27.0-31.0); Mean Corpuscular Volume 94.6 fL (78.0-98.0); Mean Platelet Volume 7.2 fL (7.4-10.4); Platelet Count 329 thou/uL (130-400); RBC Distribution Width 11.5 % (11.5-14.5); Red Blood Cell (RBC) Count 4.21 mill/uL (4.20-5.40); White Blood Cell (WBC) Count 6.2 thou/uL (4.8-10.8)
[2020-04-11 04:47] LABS: Hemoglobin A1c 5.1 % (4.0-6.0)
[2020-04-11 05:06] LABS: Anion Gap 12 mmol/L (10-20); BUN (Urea Nitrogen) 15 mg/dL (9.8-20.1); Calc. Creatinine Clearance 52 mL/min (70-130); Carbon Dioxide 28 mmol/L (23-31); Cardiac Risk 3.7 (Less than 4.5); Chloride 103 mmol/L (98-107); Cholesterol 209 mg/dl (< 200 Desired); Estimated GFR-MDRD 71; Glucose 82 mg/dL (83-110); HDL Cholesterol 57 mg/dL (>60 Neg Risk); LDL Cholesterol, Calculated 128 mg/dL; Potassium 3.5 mmol/L (3.5-5.1); Sodium 139 mmol/L (136-145); Triglycerides 121 mg/dL (Less than 150)
[2020-04-11] MEDS: Donepezil HCl 5 MG TAB PO SCH (08:24)
[2020-04-11] MEDS: Azithromycin 250 MG TAB PO SCH (08:24)
[2020-04-11] MEDS: Enoxaparin Sodium 40 MG/0.4 ML SYRINGE SC SCH (08:25)
[2020-04-11] MEDS: Gabapentin 400 MG CAP PO SCH (08:26)
[2020-04-11] MEDS: Pramipexole Di-HCl 0.25 MG TAB PO SCH (08:27)
[2020-04-11] MEDS ORDERED: Lisinopril 20 MG TAB PO SCH (09:00)
[2020-04-11] MEDS ORDERED: Clotrimazole 1 % Cream 30 GM TUBE TOP SCH (09:00)
[2020-04-11] MEDS ORDERED: Furosemide 20 MG TAB PO SCH (09:00)
[2020-04-11] MEDS ORDERED: Loratadine 10 MG TAB PO SCH (09:00)
[2020-04-11 11:25] VITALS: BP 161/70; TEMP 98.4
--- NOTE | 2020-04-12 07:30 | DIS ---
DATE OF ADMISSION: 04/10/2020 DATE OF DISCHARGE: 04/11/2020 HOSPITAL COURSE: Ms. Hager is an 89-year-old female with a medical history of hypertension, COPD, and dementia, who presented with chronic left upper thorax pain. She was diagnosed with intertrigo and musculoskeletal pain. The patient was started on topical clotrimazole and ibuprofen. The patient's symptoms improved on the day of discharge, she was discharged back to her senior care with followup appointments with primary care physician. PHYSICAL EXAMINATION: VITAL SIGNS: Blood pressure 161/70, pulse 67, respiratory rate 20, oxygen saturation 94% on room air, and temperature 98.4. GENERAL: Lying comfortably in bed. Awake and alert. HEENT: Normocephalic, atraumatic. CARDIAC: Regular rate and rhythm. No murmurs, gallops, or rubs. LUNGS: Clear to auscultation bilaterally. No wheezing, rales, or rhonchi. No tachypnea. GI: Soft, nondistended, nontender. Normal bowel sounds. EXTREMITIES: No edema. SKIN: Bilateral intertrigo below the breasts. MUSCULOSKELETAL: Left lateral upper thorax reproducible pain, worse with taking a deep breath, mild. PSYCHIATRIC: Proper mood and affect. Alert and oriented x2 (not to time). MEDICATION LIST: New medications: 1. Ibuprofen 600 mg p.o. q.8 hours scheduled for 7 days. 2. Pantoprazole 40 mg p.o. q.a.m. as long as ibuprofen is taken. 3. Clotrimazole 1 application b.i.d. below the breasts for 2 weeks. Modified medications: Lasix was changed from scheduled to p.r.n. swelling. Discontinued medications: Azithromycin and prednisone. Continued medications: 1. Tylenol p.r.n. pain. 2. Donepezil. 3. Fexofenadine. 4. Gabapentin. 5. DuoNeb. 6. Lisinopril. 7. Pramipexole. Job ID: [id number]
--- NOTE | 2020-04-16 12:33 | EKG ---
Test Reason : Blood Pressure : / mmHG Vent. Rate : 091 BPM Atrial Rate : 089 BPM P-R Int : 000 ms QRS Dur : 074 ms QT Int : 380 ms P-R-T Axes : 000 013 059 degrees QTc Int : 467 ms Accelerated Junctional rhythm Low voltage QRS Nonspecific ST abnormality Abnormal ECG Confirmed by VIRGILIO LICONA M.D. ([id number]), art editor ANNEL RAM ([id number]) on 04/16/2020 12:33:13 PM Referred By: Confirmed By:VIRGILIO LICONA M.D.
== END 2020-04-11 14:55 ==
LOC: ERS 04:41 → ERHOLD 06:26 → 2SW 09:09
PROVIDERS: ADMIT Internal Medicine; ATTEND Internal Medicine
DX: R07.89 Other chest pain (principal); L30.4 Erythema intertrigo; J44.1 Chronic obstructive pulmonary disease with (acute) exacerbation; F03.90 Unspecified dementia, unspecified severity, without behavioral disturbance, psychotic disturbance, mood disturbance, and anxiety; E78.5 Hyperlipidemia, unspecified; G25.81 Restless legs syndrome; I13.0 Hypertensive heart and chronic kidney disease with heart failure and stage 1 through stage 4 chronic kidney disease, or unspecified chronic kidney disease; N18.3 Chronic kidney disease, stage 3 (moderate); I50.9 Heart failure, unspecified; G47.33 Obstructive sleep apnea (adult) (pediatric); Z87.891 Personal history of nicotine dependence; Z79.899 Other long term (current) drug therapy; Z88.8 Allergy status to other drugs, medicaments and biological substances; Z20.828 Contact with and (suspected) exposure to other viral communicable diseases
CPT/HCPCS: 71045; 80048; 80053; 80061; 83036; 83880; 84443; 84484 ×2; 85025 ×2; 93005; 97139; 99285; U0002; 36415; 93010; 96372; G0378; J1650

== ENCOUNTER 2020-05-04 22:29 | Inpatient (IN) | payer MEDICARE, OTHER ==
[2020-05-04 23:01] LABS: #Eosinphils 0.2 thou/uL (0.0-0.7); #Lymphocytes 2.6 thou/uL (1.20-3.40); #Monocytes 0.5 thou/uL (0.11-0.59); #Neutrophils 3.4 thou/uL (1.40-6.50); %Basophils 0.5 % (0.0-1.0); %Eosinophils 3.4 % (0.0-10.0); %Lymphocytes 38.5 % (21.0-51.0); %Monocytes 7.3 % (0.0-10.0); %Neutrophils 50.4 % (42.0-75.0); Hemoglobin 12.6 g/dL (12.0-16.0); Mean Corpuscular HGB CONC 33.7 g/dL (32.0-36.0); Mean Corpuscular Hemoglobin 31.3 pg (27.0-31.0); Mean Platelet Volume 7.2 fL (7.4-10.4); Platelet Count 279 thou/uL (130-400); RBC Distribution Width 11.6 % (11.5-14.5); Red Blood Cell (RBC) Count 4.01 mill/uL (4.20-5.40); White Blood Cell (WBC) Count 6.8 thou/uL (4.8-10.8)
--- NOTE | 2020-05-04 23:04 | RAD ---
Exam: Chest one view HISTORY:Dementia. Chest pain and shortness of breath. Comparison: 04/10/2020 FINDINGS: Cardiac silhouette:Stable cardiomegaly. Aorta: Stable atherosclerosis Pulmonary vessels: Normal Costophrenic angles: Small bilateral effusions LUNGS: Scattered interstitial opacities more focal alveolar infiltrate in the left suprahilar region. Pneumothorax: None Osseous abnormalities: Diffuse bony mineralization. Cervical fusion hardware is noted. IMPRESSION: 1. Atherosclerosis. 2. Bilateral pleural effusions with interstitial edema. Focal alveolar infiltrate may represent left upper lobe pneumonia.
[2020-05-04 23:22] LABS: ALT (SGPT) Less than 7 U/L (8-55); AST (SGOT) 18 U/L (5-34); Albumin 3.3 g/dL (3.4-4.8); Alkaline Phosphatase 96 U/L (40-110); Anion Gap 16 mmol/L (10-20); BUN (Urea Nitrogen) 10 mg/dL (9.8-20.1); Bilirubin, Total 0.3 mg/dL (0.2-1.2); CK (CPK) 157 U/L (29-168); Calc. Creatinine Clearance 0 mL/min (70-130); Calcium 8.5 mg/dL (7.8-10.44); Carbon Dioxide 28 mmol/L (23-31); Chloride 100 mmol/L (98-107); Estimated GFR-MDRD 58; Glucose 86 mg/dL (83-110); Lipase 29 U/L (8-78); Protein, Total 5.3 g/dL (6.0-8.3); Sodium 141 mmol/L (136-145)
[2020-05-04 23:27] LABS: Potassium 2.6 mmol/L (3.5-5.1)
[2020-05-04 23:42] LABS: CKMB 2.8 ng/mL (0-6.6)
[2020-05-04] MEDS ORDERED: Potassium Chloride 40 MEQ in Sodium Chloride 0.9% 250 ML 250 ML IVPB SCH (23:45)
[2020-05-05] MEDS ORDERED: Cefepime 2 GM VIAL ONE (00:09)
[2020-05-05] MEDS ORDERED: hydrALAZINE 20 MG/ML VIAL SLOW IVP PRN (00:40)
[2020-05-05] MEDS ORDERED: Labetalol HCl 100 MG/20 ML VIAL SLOW IVP PRN (00:40)
[2020-05-05] MEDS ORDERED: Guaifenesin DM 100-10/5 ML UDCUP PO PRN (00:40)
[2020-05-05] MEDS ORDERED: Ondansetron PF 4 MG/2 ML Vial IVP PRN (00:40)
[2020-05-05] MEDS ORDERED: Acetaminophen 325 MG TAB PO PRN (00:40)
[2020-05-05] MEDS ORDERED: cloNIDine 0.1 MG TAB PO PRN (00:40)
[2020-05-05] MEDS ORDERED: Promethazine HCl 12.5 MG in Sodium Chloride 0.9% 50 ML IVPB PRN (00:40)
--- NOTE | 2020-05-05 00:41 | PDOC.HHP ---
Hospitalist HPI - History of Present Illness Shortness of breath, chest pain History of Present Illness: Patient is an 89 year old female with PMH alzheimers, dementia who reports chest pain and shortness of breath which began last night. Patient reports around 9pm developed chest pain and shortness of breath, improved with NGT and supplemental oxygen by nasal cannula at 2L/min. chest pain is pressure like, substernal, was 8/10 and now 3/10, she recieved ASA, nitropaste by EMS. She denies palpitations, fevers, chills, syncope. In ED, afebrile and hemodynamically stable on 2L o2 by NC. EKG no elevations, sinus rhythm. K 2.6, TnI 0.034, CXR w/ bilateral pleural effusions with interstitial edema, left upper lobe infiltrate concerning for pneumonia. Patient given abx, given potassium, admitted for further workup of chest pain and pneumonia. COVID swab collected, results pending. Hospitalist ROS - Review of Systems Constitutional: denies: fever, chills, sweats, weakness, malaise, other Eyes: denies: pain, vision change, conjunctivae inflammation, eyelid inflammation, redness, other ENT: denies: ear pain, ear discharge, nose pain, nose discharge, nose congestion, mouth pain, mouth swelling, throat pain, throat swelling, other Respiratory: reports: shortness of breath. denies: cough, dry, hemoptysis, SOB with excertion, pleuritic pain, sputum, wheezing, other Cardiovascular: reports: chest pain. denies: palpitations, orthopnea, paroxysmal noc. dyspnea, edema, light headedness, other Gastrointestinal: denies: nausea, vomiting, abdominal pain, diarrhea, constipation, melena, hematochezia, other Genitourinary: denies: dysuria, frequency, incontinence, hematuria, retention, other Musculoskeletal: denies: neck pain, shoulder pain, arm pain, back pain, hand pain, leg pain, foot pain, other Skin: denies: rash, lesions, mehran, bruising, other Neurological: denies: weakness, numbness, incoordination, change in speech, confusion, seizures, other All other systems reviewed; all pertinent +/- noted in HPI/Subj - Medication Medications: gabapentin SatMay 04, 2020 23:11 ALFRED Brody, Tasha CAPSULE : Strength - 300 mg : ORAL Patient Dose: 400 mg Oral 2 times a day. pramipexole SatMay 04, 2020 23:11 ALFRED Brody Mikayla TABLET : Strength - 0.5 mg : ORAL Patient Dose: 1 tab(s) Oral once a day (at bedtime). lisinopril SatMay 04, 2020 23:11 AFLRED Brody Mikayla tablet : Strength - 20 mg : ORAL Patient Dose: 20 mg Oral once a day. donepezil SatMay 04, 2020 23:12 ALFRED Brody Mikayla tablet : Strength - 5 mg : ORAL Patient Dose: 1 tab(s) Oral once a day. fexofenadine SatMay 04, 2020 23:12 ALFRED Brody Mikayla tablet : Strength - 180 mg : ORAL Patient Dose: 1 tab(s) Oral once a day. pantoprazole oral SatMay 04, 2020 23:13 ALFRED Brody Mikayla tablet,delayed release (DR/EC) : Strength - 40 mg : ORAL Patient Dose: 1 tab(s) Oral As Needed.STOMACH PAIN. Hospitalist History - Past Medical History Heme/Onc: reports: no pertinent history Hepatobiliary: reports: no pertinent history Psych: reports: Other (dementia) Rheumatologic: reports: no pertinent history Endocrine: reports: no pertinent history Other Medical History: congestive heart failure, hyperlipidemia, high cholesterol, hypertension, neurological disease, dementia, pulmonary disease, chronic obstructive pulmonary disease. ALZHEIMERS, RESTLESS LEG SYNDROME, STAGE 3 CKD. - Past Surgical History Past Surgical History: reports: Cholecystectomy, Hysterectomy, Total Knee Replacement - Family History Family History: reports: no pertinent history - Social History Alcohol: reports: None Drugs: reports: none - Exam General Appearance: NAD, awake alert Eye: PERRL, anicteric sclera ENT: normocephalic atraumatic, no oropharyngeal lesions, moist mucosa Neck: supple, symmetric, no JVD, no thyromegaly, no lymphadenopathy, no carotid bruit Heart: RRR, no murmur, no gallops, no rubs, normal peripheral pulses Respiratory: CTAB, no wheezes, no rales, no ronchi, normal chest expansion, no tachypnea, normal percussion Gastrointestinal: soft, non-tender, non-distended, normal bowel sounds, no palpable masses, no hepatomegaly, no splenomegaly, no bruit Extremities: no cyanosis, no clubbing, no edema Skin: normal turgor, no lesions, no rashes Neurological: cranial nerve grossly intact, normal sensation to touch, no weakness, no focal deficits, no new deficit Musculoskeletal: normal tone, normal strength, no muscle wasting Psychiatric: normal affect, normal behavior, A&O x 3 Hospitalist Results - Labs Result Diagrams: 05/04/20 22:51 05/04/20 22:51 Lab results: WBC 6.8 thou/uL (4.8-10.8) 05/04/20 22:51 Hgb 12.6 g/dL (12.0-16.0) 05/04/20 22:51 Hct 37.3 % (36.0-47.0) 05/04/20 22:51 MCV 93.0 fL (78.0-98.0) 05/04/20 22:51 Plt Count 279 thou/uL (130-400) 05/04/20 22:51 Neutrophils % 50.4 % (42.0-75.0) 05/04/20 22:51 Sodium 141 mmol/L (136-145) 05/04/20 22:51 Potassium 2.6 mmol/L (3.5-5.1) L* 05/04/20 22:51 Chloride 100 mmol/L (98-107) 05/04/20 22:51 Carbon Dioxide 28 mmol/L (23-31) 05/04/20 22:51 BUN 10 mg/dL (9.8-20.1) 05/04/20 22:51 Creatinine 0.92 mg/dL (0.6-1.1) 05/04/20 22:51 Glucose 86 mg/dL (83-110) 05/04/20 22:51 Calcium 8.5 mg/dL (7.8-10.44) 05/04/20 22:51 Total Bilirubin 0.3 mg/dL (0.2-1.2) 05/04/20 22:51 AST 18 U/L (5-34) 05/04/20 22:51 ALT Less than 7 U/L (8-55) L 05/04/20 22:51 Alkaline Phosphatase 96 U/L (40-110) 05/04/20 22:51 Creatine Kinase 157 U/L (29-168) 05/04/20 22:51 CK-MB (CK-2) 2.8 ng/mL (0-6.6) 05/04/20 22:51 Troponin I 0.034 ng/mL (< 0.028) H 05/04/20 22:51 B-Natriuretic Peptide 128.1 pg/mL (0-100) H 05/04/20 22:51 Serum Total Protein 5.3 g/dL (6.0-8.3) L 05/04/20 22:51 Albumin 3.3 g/dL (3.4-4.8) L 05/04/20 22:51 Lipase 29 U/L (8-78) 05/04/20 22:51 Additional comment: VITAL SIGNS Emperatriz May 05, 2020 02:28 ALFRED Brody, Tasha BP: 113/52 Pulse: 88 Resp: 20 Temp: 98.5 (Oral) Pain: 3 O2 sat: 100 on (2L Oxygen) Time: 05/05/2020 02:28. labs, ed documents, imaging reports reviewed - EKG Interpretation EKG: EKG NSR 66 bpm QTc 448, no acute ST changes, nonspecific T wave abnormality Hospitalist H&P A/P - Plan Plan: Patient is an 89 year old female with PMH alzheimers, dementia who reports chest pain and shortness of breath which began last night. # chest pain, shortness of breath # community acquired pneumonia Patient reports around 9pm developed chest pain and shortness of breath, improved with NGT and supplemental oxygen by nasal cannula at 2L/min. chest pain is pressure like, substernal, was 8/10 and now 3/10, she recieved ASA, nitropaste by EMS. She denies palpitations, fevers, chills, syncope. In ED, afebrile and hemodynamically stable on 2L o2 by NC. EKG no elevations, sinus rhythm. K 2.6, TnI 0.034, CXR w/ bilateral pleural effusions with interstitial edema, left upper lobe infiltrate concerning for pneumonia. Patient given abx, given potassium, admitted for further workup of chest pain and pneumonia. COVID swab collected, results pending. - admit to floor - start azithromycin/ceftriaxone - empiric decadron - trend enzymes, consider cardiac workup if indicated - follow covid swab, precautions ordered # suspected COPD exacerbation - steroids and antibiotics as above, order nebs if covid negative # history of congestive heart failure # indeterminate elevated troponin - h/o CHF, mild tni elevation - repeat troponin ordered, follow up results # hyperlipidemia # hypertension # stage III CKD - resume home medications, PRN medications ordered # alzheimers dementia - resume home meds # hypokalemia - replete PRN, replacement parameters DVT/GI ppx code: DNAR, based on skilled nursing paperwork sent
[2020-05-05] MEDS ORDERED: Electrolyte Replacement Protoc 1 EACH EACH FS SCH (00:45)
[2020-05-05 06:24] VITALS: BMI 32.6
[2020-05-05 06:37] LABS: SARS-CoV-2 NAA Rapid Test Not Detected (NotDetected)
[2020-05-05] MEDS: Gabapentin 400 MG CAP PO SCH ×2 (08:52→23:42)
[2020-05-05] MEDS: Dexamethasone 4 mg/ml Vial SLOW IVP SCH (08:53)
[2020-05-05] MEDS: Famotidine 20 MG TAB PO SCH ×2 (08:53→23:42)
[2020-05-05] MEDS: Donepezil HCl 5 MG TAB PO SCH (08:53)
[2020-05-05] MEDS: Lisinopril 20 MG TAB PO SCH (08:53)
[2020-05-05] MEDS ORDERED: Gabapentin 300 MG CAP PO SCH (09:00)
[2020-05-05] MEDS ORDERED: FLU VACC QS2020-21(65YR UP)/PF 240 MCG/0.7 ML SYRINGE IM ONE (09:00)
[2020-05-05 13:07] LABS: Troponin I 0.016 ng/mL (< 0.028)
[2020-05-05 16:46] LABS: Troponin I Less than 0.010 ng/mL (< 0.028)
--- NOTE | 2020-05-05 18:10 | PDOC.HOSPP ---
- Subjective Encounter Date: 05/05/20 Encounter Time: 18:05 Subjective: f/u for suspected PNA/COPD exacerbation treated with Zithromax/Rocephin/Dexamethasone/Duonebs. - Objective Vital Signs & Weight: Vital Signs (12 hours) Temp Pulse Resp BP BP Pulse Ox 05/05/20 14:54 97.7 F 87 16 153/70 H 98 05/05/20 14:08 90 18 05/05/20 11:07 97.5 F L 80 24 H 169/80 H 100 05/05/20 10:41 70 16 05/05/20 08:02 80 16 05/05/20 07:53 97.6 F 68 18 131/60 99 Weight Weight 145 lb 9.6 oz Result Diagrams: 05/04/20 22:51 05/04/20 22:51 Additional Labs: Laboratory Tests 05/04/20 05/04/20 05/05/20 22:51 22:51 23:50 Potassium 2.6 L* B-Natriuretic Peptide 128.1 H SARS-CoV-2 Rap RNA(RT-PCR) Not Detected Radiology Reviewed by me: Yes (PCXR - bilat pleural effusions/KENZIE infiltrate) EKG Reviewed by me: Yes (Tele - SR) Hospitalist ROS - Medication Medications: Active Medications Generic Name Dose Route Start Last Admin Trade Name Freq PRN Reason Stop Dose Admin Albuterol/Ipratropium 3 ml 05/05/20 07:00 05/05/20 14:08 Ipratropium/Albuterol Sulfate 3 Ml Neb NEB 3 ml [id number] PRAKASH Administration Dexamethasone 6 mg 05/05/20 09:00 05/05/20 08:53 Dexamethasone 4 Mg/Ml Vial SLOW IVP 6 mg Q24HR PRAKASH Administration Donepezil HCl 5 mg 05/05/20 09:00 05/05/20 08:53 Donepezil Hcl 5 Mg Tab PO 5 mg DAILY PRAKASH Administration Famotidine 20 mg 05/05/20 09:00 05/05/20 08:53 Famotidine 20 Mg Tab PO 20 mg BID PRAKASH Administration Gabapentin 400 mg 05/05/20 09:00 05/05/20 08:52 Gabapentin 400 Mg Cap PO 400 mg BID PRAKASH Administration Lisinopril 20 mg 05/05/20 09:00 05/05/20 08:53 Lisinopril 20 Mg Tab PO 20 mg DAILY PRAKASH Administration Pantoprazole Sodium 40 mg 05/05/20 09:00 05/05/20 08:52 Pantoprazole 40 Mg Tab PO 40 mg QAM PRAKASH Administration Sodium Chloride 10 ml 05/05/20 09:00 05/05/20 08:57 Flush - Normal Saline 10 Ml Syringe IVF 10 ml Q12HR PRAKASH Administration - Exam General Appearance: NAD, awake alert Eye: PERRL, anicteric sclera ENT: normocephalic atraumatic, no oropharyngeal lesions Neck: supple, symmetric, no JVD, no thyromegaly, no lymphadenopathy Heart: RRR, no gallops, no rubs, normal peripheral pulses Heart - other findings: S1, S2 Respiratory - other findings: diminished bilat,bases, occ rhonchi Gastrointestinal: soft, non-tender, non-distended, normal bowel sounds, no palpable masses Extremities: no cyanosis, no clubbing, no edema Skin: normal turgor, no lesions Neurological: cranial nerve grossly intact, no new deficit Musculoskeletal: normal tone, generalized weakness Psychiatric: oriented to person Hosp A/P (1) Acute respiratory failure with hypoxia and hypercapnia Code(s): J96.01 - ACUTE RESPIRATORY FAILURE WITH HYPOXIA; J96.02 - ACUTE RESPIRATORY FAILURE WITH HYPERCAPNIA Status: Acute Plan: Suspect due to PNA/COPD, continue O2 support, Duonebs/Dexamethasone (2) Bacterial pneumonia Code(s): J15.9 - UNSPECIFIED BACTERIAL PNEUMONIA Status: Acute Plan: Suspected gm + cocci, continue Rocephin/Zithromax (3) COPD exacerbation Code(s): J44.1 - CHRONIC OBSTRUCTIVE PULMONARY DISEASE W (ACUTE) EXACERBATION Status: Acute Plan: Continue Dexamethasone/Duonebs/Rocephin/Zithromax (4) Chronic kidney disease, stage 3 Code(s): N18.3 - CHRONIC KIDNEY DISEASE, STAGE 3 (MODERATE) * DO NOT USE * Status: Chronic Plan: Avoid nephrotoxic meds and limit contrast, serial creatinine (5) Dementia Code(s): F03.90 - UNSPECIFIED DEMENTIA WITHOUT BEHAVIORAL DISTURBANCE Status: Chronic Plan: Continue Aricept 5mg po daily (6) HTN (hypertension) Code(s): I10 - ESSENTIAL (PRIMARY) HYPERTENSION Status: Chronic Qualifiers: Hypertension type: essential hypertension Qualified Code(s): I10 - Essential (primary) hypertension Plan: Continue Lisinopril 20mg daily, serial BP monitoring - Plan continue antibiotics, social media sr strategy manager, respiratory therapy, DVT proph w/SCDs Stable currently Continue Rocephin/Zithromax Continue Dexamethasone O2 via NC Resume home BP regimen AM lab: BMP, CBC, Mg++ Convert to inpt status
[2020-05-05 18:47] LABS: Troponin I Less than 0.010 ng/mL (< 0.028)
[2020-05-05 20:58] LABS: Anion Gap 16 mmol/L (10-20); BUN (Urea Nitrogen) 11 mg/dL (9.8-20.1); Calc. Creatinine Clearance 44 mL/min (70-130); Calcium 8.8 mg/dL (7.8-10.44); Carbon Dioxide 23 mmol/L (23-31); Chloride 103 mmol/L (98-107); Estimated GFR-MDRD 58; Glucose 239 mg/dL (83-110); Magnesium 1.3 mg/dL (1.6-2.6); Potassium 3.4 mmol/L (3.5-5.1); Sodium 139 mmol/L (136-145)
[2020-05-05] MEDS ORDERED: Azithromycin 500 MG in Syringe 0 ML IVPB SCH (21:00)
[2020-05-05] MEDS ORDERED: Magnesium 2 GM/50 ML 2 GM in Premix Bag 1 BAG IVPB SCH (21:30)
[2020-05-05] MEDS ORDERED: Potassium Chloride 20 MEQ TAB PO SCH (21:30)
[2020-05-05] MEDS: cefTRIAXone\\ROCEPHIN 1 GM in Sodium Chloride 0.9% 100 ML IVPB SCH (23:41)
[2020-05-05] MEDS: Enoxaparin Sodium 40 MG/0.4 ML SYRINGE SC SCH (23:54)
[2020-05-06] MEDS: Azithromycin 500 MG in Sodium Chloride 0.9% 250 ML 250 ML IVPB SCH ×2 (00:33→22:34)
[2020-05-06 07:30] LABS: #Eosinphils 0.1 thou/uL (0.0-0.7); #Lymphocytes 0.5 thou/uL (1.20-3.40); #Monocytes 0.5 thou/uL (0.11-0.59); #Neutrophils 7.1 thou/uL (1.40-6.50); %Basophils 0.4 % (0.0-1.0); %Lymphocytes 5.6 % (21.0-51.0); %Monocytes 6.3 % (0.0-10.0); %Neutrophils 86.7 % (42.0-75.0); Hemoglobin 12.1 g/dL (12.0-16.0); Mean Corpuscular HGB CONC 32.7 g/dL (32.0-36.0); Mean Corpuscular Hemoglobin 31.3 pg (27.0-31.0); Mean Corpuscular Volume 95.7 fL (78.0-98.0); Mean Platelet Volume 7.6 fL (7.4-10.4); Platelet Count 236 thou/uL (130-400); RBC Distribution Width 11.8 % (11.5-14.5); Red Blood Cell (RBC) Count 3.86 mill/uL (4.20-5.40); White Blood Cell (WBC) Count 8.1 thou/uL (4.8-10.8)
[2020-05-06 07:51] LABS: Anion Gap 14 mmol/L (10-20); BUN (Urea Nitrogen) 12 mg/dL (9.8-20.1); Calc. Creatinine Clearance 38 mL/min (70-130); Calcium 8.8 mg/dL (7.8-10.44); Carbon Dioxide 27 mmol/L (23-31); Chloride 105 mmol/L (98-107); Estimated GFR-MDRD 48; Glucose 79 mg/dL (83-110); Magnesium 1.8 mg/dL (1.6-2.6); Potassium 3.7 mmol/L (3.5-5.1); Sodium 142 mmol/L (136-145)
[2020-05-06] MEDS: Famotidine 20 MG TAB PO SCH ×2 (08:44→22:31)
[2020-05-06] MEDS: Dexamethasone 4 mg/ml Vial SLOW IVP SCH (08:44)
[2020-05-06] MEDS: Gabapentin 400 MG CAP PO SCH ×2 (08:44→22:30)
[2020-05-06] MEDS: Lisinopril 20 MG TAB PO SCH (08:44)
[2020-05-06] MEDS ORDERED: Magnesium 2 GM/50 ML 2 GM in Premix Bag 1 BAG IVPB SCH (08:45)
[2020-05-06] MEDS: Donepezil HCl 5 MG TAB PO SCH (08:45)
--- NOTE | 2020-05-06 14:27 | PDOC.HOSPP ---
- Subjective Encounter Date: 05/06/20 Encounter Time: 14:15 Subjective: f/u for PNA/COPD on Rocephin/Zithromax/Dexamethasone/Duonebs/O2 @ 2L/min. Nursing reports pt agitated this am and pulling at IV's/O2 cannula. - Objective Vital Signs & Weight: Vital Signs (12 hours) Temp Pulse Resp BP Pulse Ox 05/06/20 11:48 98.8 F 107 H 20 151/69 H 95 05/06/20 07:25 97.9 F 74 19 114/58 L 100 05/06/20 07:21 99 05/06/20 07:19 75 20 99 05/06/20 04:31 98.0 F 83 20 108/54 L 99 Weight Weight 145 lb 9.6 oz I&O: 05/05/20 05/06/20 05/07/20 06:59 06:59 06:59 Intake Total 920 Balance 920 Result Diagrams: 05/06/20 07:22 05/06/20 07:22 Additional Labs: Laboratory Tests 05/04/20 05/04/20 05/05/20 22:51 22:51 23:50 Potassium 2.6 L* B-Natriuretic Peptide 128.1 H SARS-CoV-2 Rap RNA(RT-PCR) Not Detected EKG Reviewed by me: Yes (Tele - SR) Hospitalist ROS - Medication Medications: Active Medications Generic Name Dose Route Start Last Admin Trade Name Freq PRN Reason Stop Dose Admin Albuterol/Ipratropium 3 ml 05/05/20 07:00 05/06/20 10:24 Ipratropium/Albuterol Sulfate 3 Ml Neb NEB Not Given [id number] PRAKASH Dexamethasone 6 mg 05/05/20 09:00 05/06/20 08:44 Dexamethasone 4 Mg/Ml Vial SLOW IVP 6 mg Q24HR PRAKASH Administration Donepezil HCl 5 mg 05/05/20 09:00 05/06/20 08:45 Donepezil Hcl 5 Mg Tab PO 5 mg DAILY PRAKASH Administration Enoxaparin Sodium 40 mg 05/05/20 21:00 05/05/20 23:54 Enoxaparin Sodium 40 Mg/0.4 Ml Syringe SC 40 mg 2100 PRAKASH Administration Famotidine 20 mg 05/05/20 09:00 10/09/20 08:44 Famotidine 20 Mg Tab PO 20 mg BID PRAKASH Administration Gabapentin 400 mg 05/05/20 09:00 05/06/20 08:44 Gabapentin 400 Mg Cap PO 400 mg BID PRAKASH Administration Ceftriaxone Sodium 1 gm/ 100 mls @ 200 mls/hr 05/05/20 21:00 05/05/20 23:41 Sodium Chloride IVPB Not Given HS PRAKASH Azithromycin 500 mg/ Sodium 250 mls @ 250 mls/hr 05/05/20 21:00 05/06/20 00:33 Chloride IVPB 250 mls Q24HR PRAKASH Administration Lisinopril 20 mg 05/05/20 09:00 05/06/20 08:44 Lisinopril 20 Mg Tab PO 20 mg DAILY PRAKASH Administration Pantoprazole Sodium 40 mg 05/05/20 09:00 05/06/20 08:45 Pantoprazole 40 Mg Tab PO 40 mg QAM PRAKASH Administration Sodium Chloride 10 ml 05/05/20 09:00 05/06/20 08:45 Flush - Normal Saline 10 Ml Syringe IVF 10 ml Q12HR PRAKASH Administration - Exam General Appearance: NAD, awake alert Eye: PERRL, anicteric sclera ENT: normocephalic atraumatic, no oropharyngeal lesions Neck: supple, symmetric, no JVD, no thyromegaly, no lymphadenopathy Heart: RRR, no gallops, no rubs, normal peripheral pulses Heart - other findings: S1, S2 Respiratory - other findings: few scattered rhonchi, diminished in bases Gastrointestinal: soft, non-tender, non-distended, normal bowel sounds, no palpable masses Extremities: no cyanosis, no clubbing Skin: normal turgor Neurological: cranial nerve grossly intact, no new deficit Musculoskeletal: normal tone, generalized weakness Psychiatric: oriented to person Hosp A/P (1) Acute respiratory failure with hypoxia and hypercapnia Code(s): J96.01 - ACUTE RESPIRATORY FAILURE WITH HYPOXIA; J96.02 - ACUTE RESPIRATORY FAILURE WITH HYPERCAPNIA Status: Acute Plan: Continue O2 supplementation, further mgmt below (2) Bacterial pneumonia Code(s): J15.9 - UNSPECIFIED BACTERIAL PNEUMONIA Status: Acute Plan: Continue Rocephin/Zithromax another 24h then de-escalate (3) COPD exacerbation Code(s): J44.1 - CHRONIC OBSTRUCTIVE PULMONARY DISEASE W (ACUTE) EXACERBATION Status: Acute Plan: Continue Dexamethasone/Duonebs/O2 (4) Chronic kidney disease, stage 3 Code(s): N18.3 - CHRONIC KIDNEY DISEASE, STAGE 3 (MODERATE) * DO NOT USE * Status: Chronic (5) Dementia Code(s): F03.90 - UNSPECIFIED DEMENTIA WITHOUT BEHAVIORAL DISTURBANCE Status: Chronic (6) HTN (hypertension) Code(s): I10 - ESSENTIAL (PRIMARY) HYPERTENSION Status: Chronic Qualifiers: Hypertension type: essential hypertension Qualified Code(s): I10 - Essential (primary) hypertension - Plan continue antibiotics, PT/OT, social welfare administrator, respiratory therapy, out of bed/ambulate, DVT proph w/SCDs Stable currently Continue Rocephin/Zithromax another 24h then de-escalate Continue Dexamethasone O2 via NC Resume home BP regimen Likely d/c to [facility] 05/07/20
[2020-05-06] MEDS ORDERED: Melatonin 3 MG TAB PO PRN (19:42)
[2020-05-06] MEDS: Pramipexole Di-HCl 0.25 MG TAB PO SCH (22:29)
[2020-05-06] MEDS: Enoxaparin Sodium 40 MG/0.4 ML SYRINGE SC SCH (22:32)
[2020-05-06] MEDS: cefTRIAXone\\ROCEPHIN 1 GM in Sodium Chloride 0.9% 100 ML IVPB SCH (23:50)
[2020-05-07] MEDS ORDERED: Sodium Chloride 0.9% 1,000 ML IV SCH (02:30)
[2020-05-07 03:07] LABS: Anion Gap 13 mmol/L (10-20); BUN (Urea Nitrogen) 15 mg/dL (9.8-20.1); Calc. Creatinine Clearance 50 mL/min (70-130); Calcium 8.8 mg/dL (7.8-10.44); Carbon Dioxide 30 mmol/L (23-31); Chloride 103 mmol/L (98-107); Estimated GFR-MDRD 67; Glucose 92 mg/dL (83-110); Potassium 3.4 mmol/L (3.5-5.1); Sodium 143 mmol/L (136-145)
[2020-05-07] MEDS ORDERED: Magnesium 2 GM/50 ML 2 GM in Premix Bag 1 BAG IVPB SCH (03:30)
[2020-05-07] MEDS ORDERED: Potassium Chloride 20 MEQ TAB PO SCH (03:30)
[2020-05-07 08:14] LABS: Potassium 3.9 mmol/L (3.5-5.1)
[2020-05-07] MEDS: Dexamethasone 4 mg/ml Vial SLOW IVP SCH (08:51)
[2020-05-07] MEDS: Lisinopril 20 MG TAB PO SCH (08:52)
[2020-05-07] MEDS: Gabapentin 400 MG CAP PO SCH (08:52)
[2020-05-07] MEDS: Famotidine 20 MG TAB PO SCH (08:53)
[2020-05-07] MEDS: Pramipexole Di-HCl 0.25 MG TAB PO SCH (08:53)
[2020-05-07] MEDS: Donepezil HCl 5 MG TAB PO SCH (08:53)
--- NOTE | 2020-05-07 15:28 | DIS ---
DATE OF ADMISSION: 05/05/2020 DATE OF DISCHARGE: 05/07/2020 PRIMARY CARE PROVIDER: Dr. Tanmay Gutierrez. DISCHARGE DIAGNOSES: 1. [id number] hypoxic respiratory failure. 2. Pneumonia, community-acquired pneumonia. 3. Chronic obstructive pulmonary disease exacerbations. 4. Dementia. 5. Essential hypertension. CONSULTATION: None. LABORATORY DATA AND IMAGING STUDIES: CBC; WBC 8.1, hemoglobin 12.1, hematocrit 36.9, platelets 236. Chemistry; sodium 143, potassium 3.9, chloride 103, carbon dioxide 30, BUN 15, creatinine 0.81, magnesium 2.0. Troponins negative x3. Chest x-ray; atherosclerosis, bilateral pleural effusions with interstitial edema. Focal alveolar infiltrate may represent left upper lobe pneumonia. COVID PCR not detected. HISTORY OF PRESENT ILLNESS AND BRIEF HOSPITAL COURSE: The patient is a pleasant 89-year-old female, who has significant past medical history of COPD, on home O2, 2 L dependent; Alzheimer dementia; hypertension, who was presented with complaining of short of breath and chest discomfort. Initial workup in the ED showed that she had possible left upper lobe pneumonia. The patient was started on empiric IV antibiotics with Rocephin and azithromycin. Her COVID came back negative. She also was started on IV steroids for COPD exacerbation. Her symptoms improved, now back to her baseline. The patient had intermittent confusions due to her underlying dementia. She is otherwise feeling well. Her O2 requirement is back to her baseline at 2 L. She is afebrile. Cultures, no growth. Her serial cardiac enzymes were negative x3. Her symptoms resolved. At this time, the patient is stable to discharge back to the correction. She will be discharged back to the correction with taper prednisone and 5 days of Omnicef. DISPOSITION: The patient is stable to discharge back to correction, [facility]. ACTIVITY: As tolerated. DIET: Regular. FOLLOWUP CARE: The patient to follow up with her PCP in 1 to 2 weeks. PHYSICAL EXAMINATION: VITAL SIGNS: Temperature 97.8, pulse 85, respiratory rate 17, saturating 98% on 2 L, blood pressure is 145/67. GENERAL APPEARANCE: The patient appears to be comfortable. She is not in acute distress. HEENT: Normocephalic and atraumatic. Mucous membranes are moist. NECK: Supple. No lymphadenopathy. No JVD. CARDIOVASCULAR: Regular rate and rhythm. S1 and S2 noted. No murmur. PULMONOLOGY: Clear to auscultation bilaterally. ABDOMEN: Soft, nontender, and nondistended. Positive bowel sounds. MUSCULOSKELETAL: No joint pain or tenderness. No lower extremity edema. SKIN: Intact. NEUROLOGIC: Cranial nerves 2 through 12 grossly intact. No focal weakness. PSYCHIATRIC: The patient is alert and oriented x2 with normal affect. DISCHARGE MEDICATIONS: New prescription: 1. Omnicef 300 mg b.i.d. x5 days. 2. Prednisone dose pack taper, dispense 21 tablets. Continue routine home medications includin. Leisa Allergy 180 mg p.o. daily. 2. Aricept 5 mg p.o. daily. 3. Gabapentin 400 mg b.i.d. 4. Pramipexole 0.5 mg b.i.d. 5. Lisinopril 20 mg p.o. daily. 6. Protonix 40 mg p.o. daily. Thank you for allowing us to participate in this patient's care. DISCHARGE TIME SPENT: 35 minutes. Job ID: [id number]
[2020-05-07] MEDS ORDERED: Cefdinir 300 MG CAP PO SCH (16:00)
[2020-05-07 18:09] VITALS: BP 175/85; TEMP 97.6
--- NOTE | 2020-05-08 08:50 | EKG ---
Test Reason : Blood Pressure : / mmHG Vent. Rate : 099 BPM Atrial Rate : 099 BPM P-R Int : 126 ms QRS Dur : 084 ms QT Int : 358 ms P-R-T Axes : 046 007 008 degrees QTc Int : 459 ms Sinus rhythm with Premature atrial complexes with Abberant conduction Nonspecific T wave abnormality Abnormal ECG When compared with ECG of 04-MAY-2020 22:47, (Unconfirmed) Sinus rhythm has replaced Junctional rhythm Vent. rate has increased BY 33 BPM Nonspecific T wave abnormality, worse in Anterior leads Confirmed by DR. Amalia SLATER ([id number]) on 05/08/2020 8:50:04 AM Referred By: SHERINE Confirmed By:DR. Amalia SLATER
--- NOTE | 2020-05-09 17:35 | EKG ---
Test Reason : CP Blood Pressure : / mmHG Vent. Rate : 129 BPM Atrial Rate : 053 BPM P-R Int : 000 ms QRS Dur : 080 ms QT Int : 342 ms P-R-T Axes : 000 024 004 degrees QTc Int : 501 ms Regular narrow complex tachycardia Nonspecific ST abnormality Abnormal ECG When compared with ECG of 05-MAY-2020 20:22, Junctional rhythm has replaced Sinus rhythm Non-specific change in ST segment in Lateral leads Nonspecific T wave abnormality no longer evident in Anterolateral leads Confirmed by DR. Amalia SLATER ([id number]) on 05/09/2020 5:34:59 PM Referred By: SHERINE Confirmed By:DR. Amalia SLATER
== END 2020-05-07 17:40 | DRG 193 ==
LOC: ERS 22:29 → 2SW 05-05 01:55 → OBSVTOIN 05-05 18:16 → 2SE 05-05 20:59 → 2NO 05-07 11:22
PROVIDERS: ADMIT Internal Medicine; ATTEND Internal Medicine
PROC: 3E02340 Introduction of Influenza Vaccine into Muscle, Percutaneous Approach (ICD-10-PCS; principal; 2020-05-05)
PROC: 3E0234Z Introduction of Serum, Toxoid and Vaccine into Muscle, Percutaneous Approach (ICD-10-PCS; 2020-05-05)
PROC: 8E0ZXY6 Isolation (ICD-10-PCS; 2020-05-05)
DX: J15.9 Unspecified bacterial pneumonia (principal); J96.01 Acute respiratory failure with hypoxia; J96.02 Acute respiratory failure with hypercapnia; I13.0 Hypertensive heart and chronic kidney disease with heart failure and stage 1 through stage 4 chronic kidney disease, or unspecified chronic kidney disease; J44.0 Chronic obstructive pulmonary disease with (acute) lower respiratory infection; J44.1 Chronic obstructive pulmonary disease with (acute) exacerbation; Z20.828 Contact with and (suspected) exposure to other viral communicable diseases; G30.9 Alzheimer's disease, unspecified; Z66 Do not resuscitate; F02.80 Dementia in other diseases classified elsewhere, unspecified severity, without behavioral disturbance, psychotic disturbance, mood disturbance, and anxiety; E78.5 Hyperlipidemia, unspecified; E78.00 Pure hypercholesterolemia, unspecified; N18.30 Chronic kidney disease, stage 3 unspecified; G25.81 Restless legs syndrome; Z96.659 Presence of unspecified artificial knee joint; E87.6 Hypokalemia; Z90.710 Acquired absence of both cervix and uterus; Z90.49 Acquired absence of other specified parts of digestive tract; Z23 Encounter for immunization; Z87.891 Personal history of nicotine dependence; Z88.8 Allergy status to other drugs, medicaments and biological substances; Z79.899 Other long term (current) drug therapy
CPT/HCPCS: 36415; 71045; 80048; 80053; 82550; 82553; 83690; 83735; 83880; 84484; 85025; 87040; 87635; 90471; 90662; 90732; 93005; 93010; 94640; 96365; 96366; 96368; 96375; G0008; G0009; G0378; J0456; J0692; J0696; J1100; J1650; J3475; J3480; J3490; J7050; J7620; U0002; U0003

== ENCOUNTER 2020-05-11 03:40 | Emergency (ER) | payer MEDICARE, OTHER ==
[2020-05-11 04:15] LABS: #Basophils 0.1 thou/uL (0.0-0.2); #Lymphocytes 3.1 thou/uL (1.20-3.40); #Monocytes 0.7 thou/uL (0.11-0.59); %Basophils 1.8 % (0.0-1.0); %Eosinophils 0.5 % (0.0-10.0); %Lymphocytes 44.2 % (21.0-51.0); %Monocytes 9.9 % (0.0-10.0); %Neutrophils 43.6 % (42.0-75.0); Hemoglobin 14.2 g/dL (12.0-16.0); Mean Corpuscular HGB CONC 32.3 g/dL (32.0-36.0); Mean Corpuscular Hemoglobin 30.4 pg (27.0-31.0); Mean Corpuscular Volume 94.3 fL (78.0-98.0); Mean Platelet Volume 7.5 fL (7.4-10.4); Platelet Count 351 thou/uL (130-400); RBC Distribution Width 11.5 % (11.5-14.5); Red Blood Cell (RBC) Count 4.68 mill/uL (4.20-5.40)
[2020-05-11 04:39] LABS: ALT (SGPT) 8 U/L (8-55); AST (SGOT) 16 U/L (5-34); Albumin 3.8 g/dL (3.4-4.8); Alkaline Phosphatase 104 U/L (40-110); Anion Gap 15 mmol/L (10-20); BUN (Urea Nitrogen) 11 mg/dL (9.8-20.1); Bilirubin, Total 0.5 mg/dL (0.2-1.2); Calc. Creatinine Clearance 0 mL/min (70-130); Calcium 9.3 mg/dL (7.8-10.44); Carbon Dioxide 32 mmol/L (23-31); Chloride 97 mmol/L (98-107); Estimated GFR-MDRD 75; Globulin 2.4 g/dL (2.4-3.5); Glucose 82 mg/dL (83-110); Potassium 3.4 mmol/L (3.5-5.1); Protein, Total 6.2 g/dL (6.0-8.3); Sodium 141 mmol/L (136-145)
--- NOTE | 2020-05-11 08:05 | RAD ---
EXAM: Portable chest PROVIDED CLINICAL HISTORY: Chest pain COMPARISON: 05/04/2020 FINDINGS: Cardiac and mediastinal silhouette is within normal limits. No focal consolidation, pleural fluid or pneumothorax evident. Atherosclerosis is redemonstrated. There is an acute appearing minimally displaced right lateral third or fourth rib fracture. IMPRESSION: No evidence for an acute cardiopulmonary process. Minimally displaced right lateral third or fourth r ib fracture.
--- NOTE | 2020-05-14 10:37 | EKG ---
Test Reason : Blood Pressure : / mmHG Vent. Rate : 073 BPM Atrial Rate : 073 BPM P-R Int : 124 ms QRS Dur : 082 ms QT Int : 422 ms P-R-T Axes : 048 004 031 degrees QTc Int : 464 ms Normal sinus rhythm Normal ECG Confirmed by FRANSISCO SMITH ([id number]), editor publications ANNEL RAM ([id number]) on 05/14/2020 10:37:29 AM Referred By: Confirmed By:FRANSISCO SMITH
== END 2020-05-11 06:51 ==
LOC: ERS 03:40
DX: J18.9 Pneumonia, unspecified organism (principal); R07.89 Other chest pain; I13.10 Hypertensive heart and chronic kidney disease without heart failure, with stage 1 through stage 4 chronic kidney disease, or unspecified chronic kidney disease; I50.9 Heart failure, unspecified; N18.30 Chronic kidney disease, stage 3 unspecified; E78.5 Hyperlipidemia, unspecified; G20 Parkinson's disease; E78.00 Pure hypercholesterolemia, unspecified; J44.9 Chronic obstructive pulmonary disease, unspecified; G30.9 Alzheimer's disease, unspecified; F02.80 Dementia in other diseases classified elsewhere, unspecified severity, without behavioral disturbance, psychotic disturbance, mood disturbance, and anxiety; Z87.891 Personal history of nicotine dependence; Z79.899 Other long term (current) drug therapy
CPT/HCPCS: 36415; 71045; 80053; 84484; 85025; 93005